=== PATIENT | female | born 1960 | race Caucasian/White ===

== ENCOUNTER 2016-05-02 07:59 | Emergency (ER) | payer OTHER ==
[~2016-05-02] VITALS: Ht 162.6 cm; Wt 107.0 kg
[~2016-05-02 07:59] MED LIST: ACET325T33 PO; ALBU8.5H3 INH; BEN50 PO; COLL1PAC12 TOP; CYCL-319 PO; HC1C30 TOP; HYDR-3498 PO; IBUP-1542 PO; ONDA4TAB8 PO; PRED20TA PO
[2016-05-02 08:03] VITALS: Ht 162.6 cm; Wt 107.0 kg
[2016-05-02] MEDS ORDERED: ASPIRIN 325 MG TAB PO STA (08:39)
[2016-05-02] MEDS ORDERED: KETOROLAC 30 MG INJ IV STA (08:39)
--- NOTE | 2016-05-02 09:10 | RADRPT ---
PROCEDURE: Chest x-ray CLINICAL INDICATION: Chest pain. TECHNIQUE: One-view frontal. COMPARISON: 10/14/2015 FINDINGS: The cardiac silhouette is normal. No infiltrates are noted. No hilar abnormalities are identified. No pneumothorax or pleural effusions are visualized. IMPRESSION: 1. No active cardiopulmonary changes. RPTAT: HH .Kraig Barone MD, MD Date Time Electronically viewed and signed by .Kraig Barone MD, on 05/02/2016 09:10 .G/
[2016-05-02 09:20] LABS: BASOPHIL # 0.1 10^3/ul (0.0-0.1); BASOPHILS % 0.8 % (0.0-2.0); EOSINOPHILS # 0.1 10^3/ul (0.0-0.5); EOSINOPHILS % 1.7 % (0.0-7.0); HEMATOCRIT 39.4 % (37.0-47.0); HEMOGLOBIN 13.1 g/dl (12.0-16.0); LYMPHOCYTES # 2.1 10^3/ul (0.8-2.9); LYMPHOCYTES % 32.2 % (15.0-51.0); MEAN CORPUSCULAR HEMOGLOBIN 29.9 pg (29.0-33.0); MEAN CORPUSCULAR HGB CONC 33.2 g/dl (32.0-37.0); MEAN CORPUSCULAR VOLUME 89.9 fl (82.0-101.0); MEAN PLATELET VOLUME 8.1 fl (7.4-10.4); MONOCYTE # 0.3 10^3/ul (0.3-0.9); MONOCYTES % 4.9 % (0.0-11.0); NEUTROPHILS % 60.4 % (39.0-77.0); PLATELET COUNT 265 10^3/UL (140-440); RED BLOOD COUNT 4.39 10^6/ul (4.20-5.40); RED CELL DISTRIBUTION WIDTH 13.9 % (11.5-14.5); UNCORRECTED WBC 6.6 10^3/ul (4.8-10.8); WHITE BLOOD COUNT 6.6 10^3/ul (4.8-10.8)
[2016-05-02 09:29] LABS: CONDITION 1; LH ANALYZER COMMENTS 1; SUSPECT 1
[2016-05-02 09:35] LABS: INR 0.96; PROTIME 12.8 Sec (12.2-14.2)
[2016-05-02 09:36] LABS: PARTIAL THROMBOPLASTIN TIME 36.1 Sec (25.0-35.0)
[2016-05-02 09:38] LABS: D-DIMER 265.84 ng/ml (<460)
[2016-05-02 09:49] LABS: ALBUMIN 4.1 g/dl (3.3-4.9)
[2016-05-02 09:50] LABS: CHLORIDE 103 mmol/L (97-110); POTASSIUM 4.1 mmol/L (3.5-5.1); SODIUM 139 mmol/L (135-144)
[2016-05-02 09:52] LABS: ANION GAP 15 (8-16); BILIRUBIN,INDIRECT 0.3 mg/dl (0-1.1); BILIRUBIN,TOTAL 0.3 mg/dl (0.2-1.3); CARBON DIOXIDE 25 mmol/L (21-31); CREATININE 0.78 mg/dl (0.44-1.00)
[2016-05-02 09:53] LABS: ALANINE AMINOTRANSFERASE 52 IU/L (13-69); ALKALINE PHOSPHATASE 88 IU/L (42-121); ASPARTATE AMINO TRANSFERASE 39 IU/L (15-46); BLOOD UREA NITROGEN 12 mg/dl (7-20); CALCIUM 9.2 mg/dl (8.4-10.2); GLUCOSE 115 mg/dl (70-220); TOTAL PROTEIN 7.5 g/dl (6.1-8.1)
[2016-05-02 10:07] LABS: TROPONIN-I < 0.012 ng/ml (0.00-0.12)
--- NOTE | 2016-05-02 10:25 | ERD ---
ER Documentation Chief Complaint Date/Time DATE: 05/02/16 TIME: 10:21 Chief Complaint CP RADIATING TO LT SHOULDER, JAW, NECK. SYMPTOM ONSET LAST NIGHT. HPI Patient comes to the emergency department complaining of pleuritic chest pain that has been constant since yesterday. She states it hurts worse when she is breathing. She has a history of costochondritis. She is also had some mild nasal congestion for which she is very seen her primary care physician. She is taking antibiotics for this. She denies any coughing or chest congestion. She denies any chest trauma. Denies any dyspnea or hemoptysis flank or back pain. Denies any lower extremity edema or calf pain. She denies any nausea, vomiting , or diarrhea. Denies any sore throat, or otalgia, loss of consciousness, or dizziness. In the remainder of the systems are negative. ROS All systems reviewed and are negative except as per history of present illness. Medications Home Meds Active Scripts Albuterol Sulfate* (Proair HFA*) 8.5 Gm Hfa.aer.ad, 2 PUFF INH Q4, #1 INHALER Prov:MIGUEL FOY PA-C 10/14/15 Acetaminophen* (Tylenol*) 325 Mg Tablet, 2 TAB PO Q8 Y for PAIN AND OR ELEVATED TEMP, #20 TAB Prov:MIGUEL FOY PA-C 09/27/15 Ondansetron Hcl* (Zofran*) 4 Mg Tablet, 4 MG PO Q6H for NAUSEA AND/OR VOMITING, #30 TAB Prov:MIGUEL FOY PA-C 09/27/15 Cyclobenzaprine Hcl* (Cyclobenzaprine Hcl*) 10 Mg Tablet, 10 MG PO TID, #15 TAB Prov:ISMAEL BREEN 03/21/15 Ibuprofen* (Motrin*) 600 Mg Tab, 600 MG PO Q6, #30 TAB Prov:ISMAEL BREEN 03/21/15 Hydrocodone Bit-Acetaminophen* ([place]*) 5-325 Mg Tab, 1 TAB PO Q6 Y for PAIN, # 20 TAB Prov:ISMAEL BREEN 03/21/15 Prednisone* (Prednisone*) 20 Mg Tab, 20 MG PO BID for 3 Days, TAB Prov:CHO,BLUE 10/17/14 Colloidal Oatmeal* (Oatmeal Bath*) 1 Pkt Packet, 1 PKT TOP QID for 5 Days, PACKET (USE FOR BATH) Prov:JOANA LUISA 10/17/14 Hydrocortisone* Topical (Hydrocortisone* Topical) 1%-28.35 Gm Cream..g., 1 APPLIC TOP Q6 Y for ITCHING, #1 TUB Prov:CHOJOANAA 10/17/14 Diphenhydramine Hcl* (Benadryl*) 50 Mg Cap, 50 MG PO Q6 Y for PRURITUS, #30 Prov:CHOBLUE 10/17/14 Allergies Allergies: Coded Allergies: sulfamethoxazole (Verified Allergy, Intermediate, 10/17/14) trimethoprim (Verified Allergy, Intermediate, 10/17/14) PMhx/Soc History of Surgery: No (HYSTERCTOMY ) Anesthesia Reaction: No Hx Neurological Disorder: No Hx Respiratory Disorders: No Hx Cardiac Disorders: No Hx Psychiatric Problems: Yes (BIPOLAR, DEPRESSION) Hx Miscellaneous Medical Probl: No Hx Alcohol Use: No Hx Substance Use: No Hx Tobacco Use: No Smoking Status: Former smoker FmHx Family History: No diabetes Physical Exam Vitals Vital Signs Date Time Temp Pulse Resp B/P Pulse Ox O2 Delivery O2 Flow Rate FiO2 05/02/16 10:07 98.1 77 16 158/93 95 Room Air 05/02/16 08:03 97.9 89 18 137/92 95 Physical Exam Const: Well-developed well-nourished female lying on the bed in no acute distress Head: Atraumatic Eyes: Normal Conjunctiva ENT: Normal External Ears, Nose and Mouth. Neck: Full range of motion..~ No meningismus. Resp: Clear to auscultation bilaterally Cardio: Regular rate and rhythm, no murmurs, mild tenderness to palpation in the anterior chest wall Abd: Soft, non tender, non distended. Normal bowel sounds Skin: No petechiae or rashes Back: No midline or flank tenderness Ext: No cyanosis, or edema. No calf pain negative Homans sign Neur: Awake and alert Psych: Normal Mood and Affect Result Diagram: 05/02/16 0907 05/02/16 0907 Results 24 hrs Laboratory Tests Test 05/02/16 09:07 Activated Partial Thromboplast Time 36.1Sec Alanine Aminotransferase (ALT/SGPT) 52IU/L Albumin 4.1g/dl Albumin/Globulin Ratio 1.20 Alkaline Phosphatase 88IU/L Anion Gap 15 Aspartate Amino Transf (AST/SGOT) 39IU/L Basophils # 0.110^3/ul Basophils % 0.8% Blood Urea Nitrogen 12mg/dl Calcium Level 9.2mg/dl Carbon Dioxide Level 25mmol/L Chloride Level 103mmol/L Creatinine 0.78mg/dl D-Dimer 265.84ng/ml D-Dimer Comment Differential Comment AUTO w/SCAN Direct Bilirubin 0.00mg/dl Eosinophils # 0.110^3/ul Eosinophils % 1.7% Globulin 3.40g/dl Glucose Level 115mg/dl Hematocrit 39.4% Hemoglobin 13.1g/dl INR International Normalized Ratio 0.96 Indirect Bilirubin 0.3mg/dl Lymphocytes # 2.110^3/ul Lymphocytes % 32.2% Mean Corpuscular Hemoglobin 29.9pg Mean Corpuscular Hemoglobin Concent 33.2g/dl Mean Corpuscular Volume 89.9fl Mean Platelet Volume 8.1fl Monocytes # 0.310^3/ul Monocytes % 4.9% Neutrophils # 4.010^3/ul Neutrophils % 60.4% Nucleated Red Blood Cells # 0.010^3/ul Nucleated Red Blood Cells % 0.0/100WBC Platelet Count 90631^3/UL Potassium Level 4.1mmol/L Prothrombin Time 12.8Sec Prothrombin Time Ratio 1.0 Red Blood Count 4.3910^6/ul Red Cell Distribution Width 13.9% Sodium Level 139mmol/L Total Bilirubin 0.3mg/dl Total Protein 7.5g/dl Troponin I < 0.012ng/ml White Blood Count 6.610^3/ul Current Medications Medications (Trade) Dose Ordered Sig/Kristel Route PRN Reason Start Time Stop Time Status Last Admin Dose Admin Aspirin (Aspirin) 325 mg ONCE STAT PO 05/02/16 08:39 05/02/16 08:42 DC 05/02/16 09:13 Ketorolac Tromethamine (Toradol) 30 mg ONCE STAT IV 05/02/16 08:39 05/02/16 08:42 DC 05/02/16 09:13 Procedures/MDM EKG demonstrates normal sinus rhythm at approximately 90 bpm with no evidence of acute ischemia noted. No PE pattern noted either. Normal VA interval and normal QRS interval. No old EKG available for comparison. Departure Diagnosis: Primary Impression: Chest pain Chest pain type: chest pain on breathing Qualified Code: R07.1 - Chest pain on breathing Condition: Stable Patient Instructions: Chest Pain, Uncertain Cause Additional Instructions: Take the medications as prescribed and please schedule a follow-up appointment with your primary care physician for any further testing that might be necessary. Activity as tolerated. Return to the emergency department for any new or worsening symptoms. CANDELARIO SMITH May 02, 2016 10:24
[2016-05-02] MEDS ORDERED: ULT50 PO (10:26)
[2016-05-02] MEDS ORDERED: ETOD300C26 PO (10:26)
[2016-05-02 10:49] VITALS: BP 142/84; PULSE 79; RESP 16; TEMP 98.1
== END 2016-05-02 10:51 | disposition home or self-care (01) ==
LOC: E/R 07:59
DX: R07.1 Chest pain on breathing (principal); Z87.891 Personal history of nicotine dependence
CPT/HCPCS: 71010; 80053; 84484; 85025; 85378; 85610; 85730; 93005; J1885; Z7610; 36415; 96374

== ENCOUNTER 2016-07-29 17:13 | Inpatient (IN) | payer OTHER ==
[~2016-07-29] VITALS: Ht 160 cm; Wt 100.0 kg
[~2016-07-29 17:13] MED LIST changes: +ETOD300C26 PO; +TRAM50TA2 PO
[2016-07-29 23:20] VITALS: Ht 160 cm; Wt 100.0 kg
[2016-07-29 23:30] VITALS: BP 132/64; RESP 20
[2016-07-30] MEDS: HYDROmorphONE 2 MG TAB PO PRN ×3 (02:18→20:50)
[2016-07-30 03:02] LABS: ADD UMIC NO; URINE BILIRUBIN (Dip) NEGATIVE (NEGATIVE); URINE BLOOD (Dip) NEGATIVE (NEGATIVE); URINE COLOR LT. YELLOW (YELLOW); URINE GLUCOSE (Dip) NEGATIVE (NEGATIVE); URINE KETONES (Dip) NEGATIVE (NEGATIVE); URINE LEUKOCYTE ESTERASE (Dip) NEGATIVE (NEGATIVE); URINE NITRITE (Dip) NEGATIVE (NEGATIVE); URINE TOTAL PROTEIN (Dip) NEGATIVE (NEGATIVE); URINE UROBILINOGEN (Dip) 0.2 E.U./dL (0.1-1.0)
[2016-07-30] MEDS ORDERED: LACTULOSE 30ML CUP PO PRN (05:00)
[2016-07-30] MEDS ORDERED: ONDANSETRON 4 MG INJ IV PRN (05:00)
[2016-07-30] MEDS ORDERED: BISACODYL 10 MG SUPP PR PRN (05:00)
[2016-07-30] MEDS ORDERED: DOCUSATE SODIUM 250 MG CAP PO PRN (05:00)
[2016-07-30] MEDS ORDERED: POLYETHYLENE GLYCOL 17 GM PACKET PO PRN (05:00)
[2016-07-30] MEDS ORDERED: SENNA TAB PO PRN (05:00)
[2016-07-30 06:25] LABS: ADD SCAN DIFF NO
[2016-07-30 06:39] LABS: ABNORMAL IP MESSAGE 1; BASOPHIL # 0.1 10^3/ul (0.0-0.1); BASOPHILS % 0.5 % (0.0-2.0); EOSINOPHILS # 0.2 10^3/ul (0.0-0.5); EOSINOPHILS % 1.9 % (0.0-7.0); HEMATOCRIT 30.6 % (37.0-47.0); HEMOGLOBIN 9.9 g/dl (12.0-16.0); LYMPHOCYTES # 2.7 10^3/ul (0.8-2.9); LYMPHOCYTES % 24.9 % (15.0-51.0); MEAN CORPUSCULAR HEMOGLOBIN 30.5 pg (29.0-33.0); MEAN CORPUSCULAR HGB CONC 32.4 g/dl (32.0-37.0); MEAN CORPUSCULAR VOLUME 94.2 fl (82.0-101.0); MEAN PLATELET VOLUME 9.6 fl (7.4-10.4); MONOCYTE # 0.7 10^3/ul (0.3-0.9); MONOCYTES % 6.3 % (0.0-11.0); NEUTROPHIL # 6.5 10^3/ul (1.6-7.5); NEUTROPHILS % 60.4 % (39.0-77.0); NUCLEATED RED BLOOD CELLS # 0.1 10^3/ul (0.0-0.0); NUCLEATED RED BLOOD CELLS% 0.7 /100WBC (0.0-0.0); PLATELET COUNT 294 10^3/UL (140-415); RED BLOOD COUNT 3.25 10^6/ul (4.20-5.40); RED CELL DISTRIBUTION WIDTH 14.9 % (11.5-14.5); WHITE BLOOD COUNT 10.7 10^3/ul (4.8-10.8)
[2016-07-30 06:42] LABS: ALBUMIN 3.8 g/dl (3.3-4.9); POTASSIUM 4.4 mmol/L (3.5-5.1)
[2016-07-30 06:44] LABS: BILIRUBIN,INDIRECT 0.5 mg/dl (0-1.1); BILIRUBIN,TOTAL 0.5 mg/dl (0.2-1.3); CREATININE 1.03 mg/dl (0.44-1.00)
[2016-07-30 06:45] LABS: ALBUMIN/GLOBULIN RATIO 1.05; CALCIUM 9.4 mg/dl (8.4-10.2); TOTAL PROTEIN 7.4 g/dl (6.1-8.1)
[2016-07-30 07:30] VITALS: BP 132/76; RESP 20
[2016-07-30] MEDS: FAMOTIDINE 20 MG TAB PO SCH ×2 (09:00→20:46)
[2016-07-30] MEDS: DOCUSATE SODIUM 100 MG CAP PO SCH ×2 (09:00→20:46)
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
[2016-07-30] MEDS: ACETAMINOPHEN 325 MG TAB PO PRN (15:43)
[2016-07-30] MEDS: EPOETIN 10000 UNITS/ML (NON ESRD/NON ONCOLOGY) SC SCH (18:24)
[2016-07-30 20:31] VITALS: BP 133/67; RESP 18
[2016-07-30] MEDS: SENNA TAB PO SCH (20:46)
[2016-07-31] MEDS ORDERED: HYDROCODONE/APAP (5/325) TAB PO PRN (09:00)
[2016-07-31] MEDS: DOCUSATE SODIUM 100 MG CAP PO SCH ×2 (09:00→21:00)
[2016-07-31] MEDS: FAMOTIDINE 20 MG TAB PO SCH ×2 (09:38→20:34)
[2016-07-31] MEDS: CEPHALEXIN 500 MG CAP PO SCH ×2 (09:38→20:34)
[2016-07-31 12:17] VITALS: BP 153/75; RESP 14
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
[2016-07-31] MEDS: ZIPRASIDONE 20 MG CAP PO SCH (20:34)
[2016-07-31] MEDS: traZODone 50 MG TAB PO SCH (20:34)
[2016-07-31] MEDS: OXCARBAZEPINE 300 MG TAB PO SCH (20:34)
[2016-07-31 20:45] VITALS: BP 141/73; RESP 18
[2016-07-31] MEDS: SENNA TAB PO SCH (21:00)
[2016-07-31] MEDS: AL HYDROX/MG HYDROX/SIMETH 30 ML CUP PO PRN (21:57)
[2016-08-01 07:30] VITALS: BP 137/79; RESP 18
[2016-08-01] MEDS: DOCUSATE SODIUM 100 MG CAP PO SCH ×2 (09:00→20:19)
[2016-08-01] MEDS: OXCARBAZEPINE 300 MG TAB PO SCH ×2 (09:00→20:20)
[2016-08-01] MEDS ORDERED: LAMOTRIGINE 100 MG TAB PO SCH (09:00)
[2016-08-01] MEDS: CEPHALEXIN 500 MG CAP PO SCH ×2 (09:02→20:19)
[2016-08-01] MEDS: FAMOTIDINE 20 MG TAB PO SCH ×2 (09:02→20:20)
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
[2016-08-01] MEDS: AL HYDROX/MG HYDROX/SIMETH 30 ML CUP PO PRN (17:06)
[2016-08-01 20:18] VITALS: BP 135/86; RESP 21
[2016-08-01] MEDS: ZIPRASIDONE 20 MG CAP PO SCH (20:19)
[2016-08-01] MEDS: LAMOTRIGINE 100 MG TAB PO SCH (20:19)
[2016-08-01] MEDS: SENNA TAB PO SCH (20:19)
[2016-08-01] MEDS: traZODone 50 MG TAB PO SCH (20:20)
[2016-08-01] MEDS: HYDROCODONE/APAP (5/325) TAB PO PRN (20:36)
[2016-08-02 07:30] VITALS: BP 136/80; RESP 18
[2016-08-02] MEDS: CEPHALEXIN 500 MG CAP PO SCH ×2 (08:30→21:17)
[2016-08-02] MEDS: FAMOTIDINE 20 MG TAB PO SCH ×2 (08:30→21:18)
[2016-08-02] MEDS: DOCUSATE SODIUM 100 MG CAP PO SCH ×2 (08:30→21:17)
[2016-08-02] MEDS: HYDROCODONE/APAP (5/325) TAB PO PRN ×2 (09:23→17:52)
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
--- NOTE | 2016-08-02 12:39 | CONS ---
Date/Time of Note Date/Time of Note DATE: 08/02/16 TIME: 12:37 Consult Date/Type/Reason Admit Date/Time Jul 29, 2016 at 23:03 Initial Consult Date Type of Consultation: IM/Pulm Subjective Doing well Objective Vital Signs Date Time Temp Pulse Resp B/P Pulse Ox O2 Delivery O2 Flow Rate FiO2 08/02/16 07:30 98.3 78 18 136/80 98 Intake and Output 08/01/16 08/01/16 08/02/16 15:00 23:00 07:00 Intake Total 2020 ml 550 ml Output Total 1 ml Balance 2019 ml 550 ml INTERDISCIPLINARY TEAM CONFERENCE BOWEL- Cont BLADDER-Cont SKIN- improving echymosis OT- DRESSING-mod BATHING-mod TOILETING-mod PT- BED MOBILITY-mod/min TRANSFERS-mod/min AMBULATION-mod/min 75 feet SPEECH- COGNITION-sba A/P- Interdisciplinary team conference held today. Please see interdisciplinary sheet. Working toward d.c. on 08/11 with post discharge follow up of physical therapy, occupational therapy. Results/Medications Result Diagram: 08/02/16 1156 07/30/16 0615 Results 24 hrs Laboratory Tests Test 08/02/16 11:56 Hemoglobin 11.2 L Medications Current Medications Hydromorphone HCl (Dilaudid) 1 mg Q4H PRN PO PAIN Last administered on 20:50; Admin Dose 1 MG; Start 07/30/16 at 00:30 Docusate Sodium (Colace) 100 mg BID PO Last administered on 08/02/16 08:30; Admin Dose 100 MG; Start 07/30/16 at 09:00 Senna (Senokot) 1 tab HS PO Last administered on 08/01/16 20:19; Admin Dose 1 TAB; Start 07/30/16 at 21:00 Acetaminophen (Tylenol Tab) 650 mg Q4H PRN PO PAIN AND OR ELEVATED TEMP Last administered on 07/30/16 15:43; Admin Dose 650 MG; Start 07/30/16 at 05:00 Bisacodyl (Dulcolax Supp) 10 mg DAILY PRN [place] CONSTIPATION; Start 07/30/16 at 05 :00 Docusate Sodium (Colace) 250 mg BID PRN PO CONSTIPATION; Start 07/30/16 at 05: 00 Epoetin Fadi (Epogen (Non Esrd/Non Oncology)) 10,000 units MoWeFr@17 SC Last administered on 07/30/16 18:24; Admin Dose 10,000 UNITS; Start 07/30/16 at 17: 00 Famotidine (Pepcid) 20 mg BID PO Last administered on 08/02/16 08:30; Admin Dose 20 MG; Start 07/30/16 at 09:00 Lactulose (Enulose) 20 gm DAILY PRN PO CONSTIPATION; Start 07/30/16 at 05:00 Ondansetron HCl (Zofran Inj) 4 mg Q6H PRN IV NAUSEA AND/OR VOMITING; Start at 05:00 Polyethylene Glycol (Miralax) 17 gm DAILY PRN PO CONSTIPATION; Start 07/30/16 at 05:00 Senna (Senokot) 1 tab BID PRN PO CONSTIPATION; Start 07/30/16 at 05:00 Cephalexin (Keflex) 500 mg BID PO Last administered on 08/02/16 08:30; Admin Dose 500 MG; Start 07/31/16 at 10:00; Stop 08/05/16 at 09:59 Acetaminophen/ Hydrocodone Bitart ([employer] (5/325)) 1 tab Q4H PRN PO MODERATE PAIN LEVEL 4-6 Last administered on 08/02/16 09:23; Admin Dose 1 TAB; Start 07/31 at 09:00 Acetaminophen/ Hydrocodone Bitart ([employer] (5/325)) 2 tab Q4H PRN PO SEVERE PAIN LEVEL 7-10; Start 07/31/16 at 09:00 Trazodone HCl (Desyrel) 50 mg HS PO Last administered on 08/01/16 20:20; Admin Dose 50 MG; Start 07/31/16 at 21:00 Ziprasidone (Geodon) 60 mg HS PO Last administered on 08/01/16 20:19; Admin Dose 60 MG; Start 07/31/16 at 21:00 Al Hydrox/Mg Hydrox/Simethicone (Mag-Al Plus) 30 ml Q6H PRN PO GASTROINTESTINAL UPSET Last administered on 08/01/16 17:06; Admin Dose 30 ML; Start 07/31/16 at 22:00 Lamotrigine (Lamictal) 100 mg HS PO Last administered on 08/01/16 20:19; Admin Dose 100 MG; Start 08/01/16 at 21:00 Oxcarbazepine (Trileptal) 300 mg HS PO Last administered on 08/01/16 20:20; Admin Dose 300 MG; Start 08/01/16 at 21:[address] GRANGER MD Aug 02, 2016 12:39
[2016-08-02] MEDS: EPOETIN 10000 UNITS/ML (NON ESRD/NON ONCOLOGY) SC SCH (17:00)
[2016-08-02 20:09] VITALS: BP 142/83; RESP 18
[2016-08-02] MEDS: ZIPRASIDONE 20 MG CAP PO SCH (21:00)
[2016-08-02] MEDS: OXCARBAZEPINE 300 MG TAB PO SCH (21:17)
[2016-08-02] MEDS: SENNA TAB PO SCH (21:17)
[2016-08-02] MEDS: LAMOTRIGINE 100 MG TAB PO SCH (21:17)
[2016-08-02] MEDS: traZODone 50 MG TAB PO SCH (21:18)
[2016-08-02] MEDS: ALPRAZOLAM 0.25 MG TAB PO PRN (21:41)
[2016-08-03] MEDS: ACETAMINOPHEN 325 MG TAB PO PRN (03:45)
[2016-08-03 08:00] VITALS: BP 142/70; RESP 18
[2016-08-03] MEDS: FAMOTIDINE 20 MG TAB PO SCH ×2 (08:37→21:00)
[2016-08-03] MEDS: CEPHALEXIN 500 MG CAP PO SCH ×2 (08:37→20:59)
[2016-08-03] MEDS: DOCUSATE SODIUM 100 MG CAP PO SCH ×2 (08:37→21:00)
[2016-08-03] MEDS: HYDROmorphONE 2 MG TAB PO PRN (11:18)
[2016-08-03] MEDS ORDERED: GABAPENTIN 100 MG CAP PO SCH (12:00)
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
--- NOTE | 2016-08-03 13:21 | RADRPT ---
PROCEDURE: CT Cervical Spine without contrast. CLINICAL INDICATION: Cervical spine pain. TECHNIQUE: The study was performed on a multislice multidetector CT scanner. Spiral axial 1 mm im ages were obtained through the cervical spine and reformatted at 2.5 mm slice thickness without cont rast. 1 or more of the following dose reduction techniques were utilized: Automated exposure contr ol, adjustment of the mA and/or kV according to patient's size, iterative reconstruction technique. Coronal and sagittal reformations were obtained. The images were reviewed on a PACS workstation. RADIATION DOSE: CTDIvol: 22.3 mGyDLP: 517.4 mGy-cm COMPARISON: No prior studies are available for comparison. FINDINGS: There is diffuse straightening cervical spine without reversal of normal cervical lordosis. There i s trace anterolisthesis of C3 on C4 and trace retrolisthesis of C6 on C7. The craniocervical juncti on is intact. The vertebral body heights are maintained. There is no evidence of fracture or dislo cation. The marrow density is within normal limits. There are diffuse anterior osteophytes with mil d narrowing intervertebral disc spaces at C4-5 and C5-6 and moderate disc-space narrowing at C6-7. There are mild discogenic endplate changes at C6-7. There is normal ossification of the nuchal liga ment, normal variant. The cervical canal is unremarkable. There is a no bone destruction or sclerosi s. The paraspinal soft tissues are unremarkable. No significant paraspinal soft tissue swelling. C2-3: There is a 1-2 mm posterior disc/osteophyte complex. The thecal sac is patent. There is mild to moderate facet spondylosis. The neural foramina are patent. C3-4: There is a 1-2 mm posterior disc/osteophyte complex. The thecal sac is patent, measuring 9 mm midline AP diameter. There is mild to moderate left and mild right facet hypertrophy and mild left uncovertebral joint spondylosis. There is moderate left and mild right neural foraminal narrowing. C4-5: There is a 1-2 mm posterior disc/osteophyte complex. The thecal sac and neural foramina are p atent. There is mild to moderate bilateral facet spondylosis. C5-6: There is a 2 mm posterior disc/osteophyte complex asymmetric to the right paracentral region. The thecal sac measuring 9 mm midline AP diameter. There is moderate and mild left facet hypertrop hy and mild bilateral uncovertebral joint spondylosis. There is moderate bilateral neural foraminal narrowing. C6-7: There is a broad-based 4-5 mm posterior disc/osteophyte complex, slightly asymmetric to the l eft paracentral region. The thecal sac measures 5 mm midline AP diameter. There is mild to moderat e bilateral facet and uncovertebral joint spondylosis. There is severe bilateral neural foraminal n arrowing. C7-T1: There is a 1-2 mm posterior disc/osteophyte complex. The thecal sac is patent. There is mil d bilateral neural foraminal narrowing. IMPRESSION: 1. No acute abnormality of the cervical spine. No evidence of fracture or dislocation. 2. Moderate spondylosis at C6-7 with broad-based 4-5 mm posterior disc/osteophyte complex with subs equent severe spinal stenosis and severe bilateral neural foraminal narrowing. 3. Mild to moderate spondylosis at C4-5 and C5-6 without significant narrowing of the cervical thec al sac. 4. Multilevel facet and uncovertebral joint spondylosis with severe narrowing of the bilateral feet 67 foramina. Other mild to moderate foraminal narrowings as discussed above. RPTAT: HGAS .Trino Uribe MD, Date Time Electronically viewed and signed by .Trino Uribe MD, MD on 08/03/2016 13:21 .S/
[2016-08-03] MEDS: HYDROCODONE/APAP (7.5/325) TAB PO PRN ×2 (13:29→18:18)
--- NOTE | 2016-08-03 14:36 | RADRPT ---
PROCEDURE: XR Chest. CLINICAL INDICATION: Chest pain. TECHNIQUE: Single frontal view. COMPARISON: 05/02/2016. FINDINGS: There is a new stent in the transverse aorta and upper descending aorta. The lungs are clear. The heart size is normal. There is no pleural effusion. There is no pneumothorax. IMPRESSION: 1. New stent in the transverse aorta and upper descending aorta. 2. Otherwise normal chest x-ray. RPTAT: QQ .Blayne Hobbs MD, MD Date Time Electronically viewed and signed by .Blayne Hobbs MD, MD on 08/03/2016 14:36 .R/
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
[2016-08-03 15:32] LABS: ADD SCAN DIFF NO
[2016-08-03 15:36] LABS: BASOPHILS % 0.5 % (0.0-2.0); EOSINOPHILS # 0.2 10^3/ul (0.0-0.5); EOSINOPHILS % 2.5 % (0.0-7.0); HEMOGLOBIN 10.8 g/dl (12.0-16.0); LYMPHOCYTES # 2.3 10^3/ul (0.8-2.9); LYMPHOCYTES % 26.7 % (15.0-51.0); MEAN CORPUSCULAR HEMOGLOBIN 30.3 pg (29.0-33.0); MEAN CORPUSCULAR HGB CONC 32.7 g/dl (32.0-37.0); MEAN CORPUSCULAR VOLUME 92.4 fl (82.0-101.0); MEAN PLATELET VOLUME 10.5 fl (7.4-10.4); MONOCYTE # 0.4 10^3/ul (0.3-0.9); MONOCYTES % 4.5 % (0.0-11.0); NEUTROPHIL # 5.5 10^3/ul (1.6-7.5); NEUTROPHILS % 64.6 % (39.0-77.0); NUCLEATED RED BLOOD CELLS% 0.2 /100WBC (0.0-0.0); PLATELET COUNT 324 10^3/UL (140-415); RED BLOOD COUNT 3.57 10^6/ul (4.20-5.40); RED CELL DISTRIBUTION WIDTH 14.9 % (11.5-14.5); WHITE BLOOD COUNT 8.5 10^3/ul (4.8-10.8)
[2016-08-03 15:48] LABS: POTASSIUM 3.3 mmol/L (3.5-5.1)
[2016-08-03 15:50] LABS: CREATININE 0.86 mg/dl (0.44-1.00)
[2016-08-03 15:51] LABS: CALCIUM 9.2 mg/dl (8.4-10.2)
[2016-08-03] MEDS ORDERED: POTASSIUM CHLORIDE (SR) 20 MEQ TAB PO STA (15:58)
[2016-08-03 20:00] VITALS: BP 132/75; RESP 18
[2016-08-03] MEDS: OXCARBAZEPINE 300 MG TAB PO SCH (20:59)
[2016-08-03] MEDS: ZIPRASIDONE 20 MG CAP PO SCH (20:59)
[2016-08-03] MEDS: GABAPENTIN 100 MG CAP PO SCH (21:00)
[2016-08-03] MEDS: traZODone 50 MG TAB PO SCH (21:00)
[2016-08-03] MEDS: LAMOTRIGINE 100 MG TAB PO SCH (21:00)
[2016-08-03] MEDS: SENNA TAB PO SCH (21:00)
[2016-08-04] MEDS: HYDROCODONE/APAP (7.5/325) TAB PO PRN ×4 (04:06→18:19)
[2016-08-04 07:41] VITALS: BP 138/68; RESP 18
[2016-08-04] MEDS: DOCUSATE SODIUM 100 MG CAP PO SCH ×2 (08:35→20:18)
[2016-08-04] MEDS: GABAPENTIN 100 MG CAP PO SCH ×3 (08:35→20:18)
[2016-08-04] MEDS: CEPHALEXIN 500 MG CAP PO SCH ×2 (08:35→20:18)
[2016-08-04] MEDS: FAMOTIDINE 20 MG TAB PO SCH ×2 (08:36→20:19)
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
[2016-08-04] MEDS: EPOETIN 10000 UNITS/ML (NON ESRD/NON ONCOLOGY) SC SCH (17:07)
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
[2016-08-04] MEDS: traZODone 50 MG TAB PO SCH (20:18)
[2016-08-04] MEDS: SENNA TAB PO SCH (20:18)
[2016-08-04] MEDS: ZIPRASIDONE 20 MG CAP PO SCH (20:18)
[2016-08-04] MEDS: LAMOTRIGINE 100 MG TAB PO SCH (20:18)
[2016-08-04] MEDS: OXCARBAZEPINE 300 MG TAB PO SCH (20:19)
[2016-08-04 20:36] VITALS: BP 129/78; RESP 18
[2016-08-05 07:30] VITALS: BP 122/74; RESP 18
[2016-08-05] MEDS: FAMOTIDINE 20 MG TAB PO SCH ×2 (09:20→20:02)
[2016-08-05] MEDS: DOCUSATE SODIUM 100 MG CAP PO SCH ×2 (09:20→20:02)
[2016-08-05] MEDS: CEPHALEXIN 500 MG CAP PO SCH (09:20)
[2016-08-05] MEDS: GABAPENTIN 100 MG CAP PO SCH ×3 (09:21→20:02)
[2016-08-05] MEDS: HYDROmorphONE 2 MG TAB PO PRN (12:38)
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
[2016-08-05 20:00] VITALS: BP 133/64; RESP 18
[2016-08-05] MEDS: OXCARBAZEPINE 300 MG TAB PO SCH (20:02)
[2016-08-05] MEDS: SENNA TAB PO SCH (20:02)
[2016-08-05] MEDS: traZODone 50 MG TAB PO SCH (20:02)
[2016-08-05] MEDS: LAMOTRIGINE 100 MG TAB PO SCH (20:02)
[2016-08-05] MEDS: ZIPRASIDONE 20 MG CAP PO SCH (20:02)
[2016-08-05] MEDS: HYDROCODONE/APAP (7.5/325) TAB PO PRN (20:03)
[2016-08-06] MEDS: HYDROCODONE/APAP (7.5/325) TAB PO PRN (01:20)
[2016-08-06 07:37] LABS: CALCIUM 8.8 mg/dl (8.4-10.2); CREATININE 0.81 mg/dl (0.44-1.00); POTASSIUM 4.1 mmol/L (3.5-5.1)
[2016-08-06 07:39] VITALS: BP 142/72; RESP 18
[2016-08-06] MEDS ORDERED: PATIENT'S OWN MEDICATION PO SCH (09:00)
[2016-08-06] MEDS: DOCUSATE SODIUM 100 MG CAP PO SCH ×2 (10:53→20:32)
[2016-08-06] MEDS: GABAPENTIN 100 MG CAP PO SCH ×3 (10:53→20:33)
[2016-08-06] MEDS: HYDROmorphONE 2 MG TAB PO PRN ×3 (10:54→20:41)
[2016-08-06] MEDS: FAMOTIDINE 20 MG TAB PO SCH ×2 (10:57→20:33)
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
[2016-08-06] MEDS: EPOETIN 10000 UNITS/ML (NON ESRD/NON ONCOLOGY) SC SCH (18:04)
[2016-08-06 20:00] VITALS: BP 152/87; RESP 18
[2016-08-06] MEDS: DESVENLAFAXINE 100 MG PO SCH (20:32)
[2016-08-06] MEDS: ZIPRASIDONE 20 MG CAP PO SCH (20:32)
[2016-08-06] MEDS: LAMOTRIGINE 100 MG TAB PO SCH (20:32)
[2016-08-06] MEDS: SENNA TAB PO SCH (20:33)
[2016-08-06] MEDS: OXCARBAZEPINE 300 MG TAB PO SCH (20:33)
[2016-08-07] MEDS: HYDROmorphONE 2 MG TAB PO PRN ×2 (00:52→08:53)
[2016-08-07 08:00] VITALS: BP 142/69; PULSE 90; RESP 16
[2016-08-07] MEDS: FAMOTIDINE 20 MG TAB PO SCH ×2 (08:52→20:48)
[2016-08-07] MEDS: DOCUSATE SODIUM 100 MG CAP PO SCH ×2 (08:52→20:48)
[2016-08-07] MEDS: GABAPENTIN 100 MG CAP PO SCH ×3 (08:52→20:48)
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
[2016-08-07] MEDS: LIDOCAINE 5% PATCH TD SCH (11:05)
[2016-08-07] MEDS: HYDROCODONE/APAP (7.5/325) TAB PO PRN (16:17)
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
[2016-08-07 20:00] VITALS: BP 154/84; PULSE 79; RESP 18
[2016-08-07] MEDS: DESVENLAFAXINE 100 MG PO SCH (20:47)
[2016-08-07] MEDS: SENNA TAB PO SCH (20:48)
[2016-08-07] MEDS: OXCARBAZEPINE 300 MG TAB PO SCH (20:48)
[2016-08-07] MEDS: ZIPRASIDONE 20 MG CAP PO SCH (20:48)
[2016-08-07] MEDS: LAMOTRIGINE 100 MG TAB PO SCH (20:49)
[2016-08-08 07:30] VITALS: BP 137/75; RESP 18
[2016-08-08] MEDS: DOCUSATE SODIUM 100 MG CAP PO SCH ×2 (09:00→20:15)
[2016-08-08] MEDS: ALPRAZOLAM 0.25 MG TAB PO PRN ×2 (09:25→17:16)
[2016-08-08] MEDS: HYDROmorphONE 2 MG TAB PO PRN ×2 (09:25→13:37)
[2016-08-08] MEDS: GABAPENTIN 100 MG CAP PO SCH ×3 (09:26→20:15)
[2016-08-08] MEDS: LIDOCAINE 5% PATCH TD SCH (09:26)
[2016-08-08] MEDS: FAMOTIDINE 20 MG TAB PO SCH ×2 (09:26→20:16)
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
[2016-08-08] MEDS: OXCARBAZEPINE 300 MG TAB PO SCH (20:15)
[2016-08-08] MEDS: DESVENLAFAXINE 100 MG PO SCH (20:15)
[2016-08-08] MEDS: ZIPRASIDONE 20 MG CAP PO SCH (20:15)
[2016-08-08] MEDS: LAMOTRIGINE 100 MG TAB PO SCH (20:15)
[2016-08-08] MEDS: SENNA TAB PO SCH (20:16)
[2016-08-08 20:54] VITALS: BP 133/78; RESP 18
[2016-08-09] MEDS: HYDROCODONE/APAP (7.5/325) TAB PO PRN ×3 (04:54→19:01)
[2016-08-09 07:30] VITALS: BP 129/68; RESP 18
[2016-08-09] MEDS: DOCUSATE SODIUM 100 MG CAP PO SCH ×2 (08:28→20:35)
[2016-08-09] MEDS: FAMOTIDINE 20 MG TAB PO SCH ×2 (08:28→20:35)
[2016-08-09] MEDS: GABAPENTIN 100 MG CAP PO SCH ×3 (08:28→20:36)
[2016-08-09] MEDS: LIDOCAINE 5% PATCH TD SCH (08:28)
--- NOTE | 2016-08-09 12:04 | CONS ---
Date/Time of Note Date/Time of Note DATE: 08/09/16 TIME: 12:03 Consult Date/Type/Reason Admit Date/Time Jul 29, 2016 at 23:03 Type of Consultation: IM/Pulm Objective Vital Signs Date Time Temp Pulse Resp B/P Pulse Ox O2 Delivery O2 Flow Rate FiO2 08/09/16 07:30 98.5 89 18 129/68 96 Intake and Output 08/08/16 08/08/16 08/09/16 15:00 23:00 07:00 Intake Total 1700 ml 550 ml Balance 1700 ml 550 ml INTERDISCIPLINARY TEAM CONFERENCE BOWEL- Cont BLADDER-Cont SKIN- intact OT- DRESSING-sba/min BATHING-sba/min TOILETING-cga PT- BED MOBILITY-sba TRANSFERS-sba AMBULATION-sba 300 feet SPEECH- COGNITION-MN A/P- Interdisciplinary team conference held today. Please see interdisciplinary sheet. Working toward d.c. on 08/11 with post discharge follow up of physical therapy, occupational therapy. Results/Medications Result Diagram: 08/06/16 0625 Medications Current Medications Hydromorphone HCl (Dilaudid) 1 mg Q4H PRN PO PAIN Last administered on 13:37; Admin Dose 1 MG; Start 07/30/16 at 00:30 Docusate Sodium (Colace) 100 mg BID PO Last administered on 08/09/16 08:28; Admin Dose 100 MG; Start 07/30/16 at 09:00 Senna (Senokot) 1 tab HS PO Last administered on 08/08/16 20:16; Admin Dose 1 TAB; Start 07/30/16 at 21:00 Acetaminophen (Tylenol Tab) 650 mg Q4H PRN PO PAIN AND OR ELEVATED TEMP Last administered on 08/03/16 03:45; Admin Dose 650 MG; Start 07/30/16 at 05:00 Bisacodyl (Dulcolax Supp) 10 mg DAILY PRN [place] CONSTIPATION; Start 07/30/16 at 05 :00 Docusate Sodium (Colace) 250 mg BID PRN PO CONSTIPATION; Start 07/30/16 at 05: 00 Epoetin Fadi (Epogen (Non Esrd/Non Oncology)) 10,000 units MoWeFr@17 SC Last administered on 08/06/16 18:04; Admin Dose 10,000 UNITS; Start 07/30/16 at 17:00 Famotidine (Pepcid) 20 mg BID PO Last administered on 08/09/16 08:28; Admin Dose 20 MG; Start 07/30/16 at 09:00 Lactulose (Enulose) 20 gm DAILY PRN PO CONSTIPATION; Start 07/30/16 at 05:00 Ondansetron HCl (Zofran Inj) 4 mg Q6H PRN IV NAUSEA AND/OR VOMITING; Start at 05:00 Polyethylene Glycol (Miralax) 17 gm DAILY PRN PO CONSTIPATION; Start 07/30/16 at 05:00 Senna (Senokot) 1 tab BID PRN PO CONSTIPATION; Start 07/30/16 at 05:00 Ziprasidone (Geodon) 60 mg HS PO Last administered on 08/08/16 20:15; Admin Dose 60 MG; Start 07/31/16 at 21:00 Al Hydrox/Mg Hydrox/Simethicone (Mag-Al Plus) 30 ml Q6H PRN PO GASTROINTESTINAL UPSET Last administered on 08/01/16 17:06; Admin Dose 30 ML; Start 07/31/16 at 22:00 Lamotrigine (Lamictal) 100 mg HS PO Last administered on 08/08/16 20:15; Admin Dose 100 MG; Start 08/01/16 at 21:00 Oxcarbazepine (Trileptal) 300 mg HS PO Last administered on 08/08/16 20:15; Admin Dose 300 MG; Start 08/01/16 at 21:00 Alprazolam (Xanax) 0.25 mg Q8H PRN PO ANXIETY Last administered on 08/08/16 17: 16; Admin Dose 0.25 MG; Start 08/02/16 at 21:30 Acetaminophen/ Hydrocodone Bitart ([place] (7.5-325)) 1 tab Q4H PRN PO moderate pain Last administered on 08/09/16 10:26; Admin Dose 1 TAB; Start 08/03/16 at 12 :00 Acetaminophen/ Hydrocodone Bitart ([place] (7.5-325)) 2 tab Q4H PRN PO severe pain Last administered on 08/04/16 04:06; Admin Dose 2 TAB; Start 08/03/16 at 12: 00 Gabapentin (Neurontin) 200 mg TID PO Last administered on 08/09/16 08:28; Admin Dose 200 MG; Start 08/04/16 at 13:00 Patient Own Medication 1 ea QHS PO Last administered on 08/08/16 20:15; Admin Dose 1 EA; Start 08/06/16 at 21:00 Lidocaine (Lidoderm) 1 patch DAILY TD Last administered on 08/09/16 08:28; Admin Dose 1 PATCH; Start 08/07/16 at 11:[address] GRANGER MD Aug 09, 2016 12:04
[2016-08-09] MEDS: ALPRAZOLAM 0.25 MG TAB PO PRN (12:36)
[2016-08-09] MEDS: EPOETIN 10000 UNITS/ML (NON ESRD/NON ONCOLOGY) SC SCH (17:04)
[2016-08-09] MEDS: OXCARBAZEPINE 300 MG TAB PO SCH (20:35)
[2016-08-09] MEDS: LAMOTRIGINE 100 MG TAB PO SCH (20:35)
[2016-08-09] MEDS: ZIPRASIDONE 20 MG CAP PO SCH (20:35)
[2016-08-09] MEDS: DESVENLAFAXINE 100 MG PO SCH (20:35)
[2016-08-09] MEDS: SENNA TAB PO SCH (20:36)
[2016-08-09 20:42] VITALS: BP 119/68; RESP 18
[2016-08-10 07:40] VITALS: BP 124/68; RESP 18
[2016-08-10] MEDS: FAMOTIDINE 20 MG TAB PO SCH ×2 (08:07→20:27)
[2016-08-10] MEDS: DOCUSATE SODIUM 100 MG CAP PO SCH ×2 (08:07→20:26)
[2016-08-10] MEDS: LIDOCAINE 5% PATCH TD SCH (08:07)
[2016-08-10] MEDS: GABAPENTIN 100 MG CAP PO SCH (08:07)
[2016-08-10] MEDS: HYDROmorphONE 2 MG TAB PO PRN ×2 (08:12→20:30)
[2016-08-10] MEDS: GABAPENTIN 300 MG CAP PO SCH ×2 (12:46→20:27)
--- NOTE | 2016-08-10 12:47 | CONS ---
Date/Time of Note Date/Time of Note DATE: 08/10/16 TIME: 12:47 Consult Date/Type/Reason Admit Date/Time Jul 29, 2016 at 23:03 Type of Consultation: IM/Pulm Objective Vital Signs Date Time Temp Pulse Resp B/P Pulse Ox O2 Delivery O2 Flow Rate FiO2 08/10/16 07:40 98.5 80 18 124/68 98 Intake and Output 08/09/16 08/09/16 08/10/16 14:59 22:59 06:59 Intake Total 1380 ml 1130 ml Balance 1380 ml 1130 ml Results/Medications Result Diagram: 08/06/16 0625 Medications Current Medications Hydromorphone HCl (Dilaudid) 1 mg Q4H PRN PO PAIN Last administered on 08:12; Admin Dose 1 MG; Start 07/30/16 at 00:30 Docusate Sodium (Colace) 100 mg BID PO Last administered on 08/10/16 08:07; Admin Dose 100 MG; Start 07/30/16 at 09:00 Senna (Senokot) 1 tab HS PO Last administered on 08/09/16 20:36; Admin Dose 1 TAB; Start 07/30/16 at 21:00 Acetaminophen (Tylenol Tab) 650 mg Q4H PRN PO PAIN AND OR ELEVATED TEMP Last administered on 08/03/16 03:45; Admin Dose 650 MG; Start 07/30/16 at 05:00 Bisacodyl (Dulcolax Supp) 10 mg DAILY PRN [place] CONSTIPATION; Start 07/30/16 at 05 :00 Docusate Sodium (Colace) 250 mg BID PRN PO CONSTIPATION; Start 07/30/16 at 05: 00 Epoetin Fadi (Epogen (Non Esrd/Non Oncology)) 10,000 units MoWeFr@17 SC Last administered on 08/09/16 17:04; Admin Dose 10,000 UNITS; Start 07/30/16 at 17: 00 Famotidine (Pepcid) 20 mg BID PO Last administered on 08/10/16 08:07; Admin Dose 20 MG; Start 07/30/16 at 09:00 Lactulose (Enulose) 20 gm DAILY PRN PO CONSTIPATION; Start 07/30/16 at 05:00 Ondansetron HCl (Zofran Inj) 4 mg Q6H PRN IV NAUSEA AND/OR VOMITING; Start at 05:00 Polyethylene Glycol (Miralax) 17 gm DAILY PRN PO CONSTIPATION; Start 07/30/16 at 05:00 Senna (Senokot) 1 tab BID PRN PO CONSTIPATION; Start 07/30/16 at 05:00 Ziprasidone (Geodon) 60 mg HS PO Last administered on 08/09/16 20:35; Admin Dose 60 MG; Start 07/31/16 at 21:00 Al Hydrox/Mg Hydrox/Simethicone (Mag-Al Plus) 30 ml Q6H PRN PO GASTROINTESTINAL UPSET Last administered on 08/01/16 17:06; Admin Dose 30 ML; Start 07/31/16 at 22:00 Lamotrigine (Lamictal) 100 mg HS PO Last administered on 08/09/16 20:35; Admin Dose 100 MG; Start 08/01/16 at 21:00 Oxcarbazepine (Trileptal) 300 mg HS PO Last administered on 08/09/16 20:35; Admin Dose 300 MG; Start 08/01/16 at 21:00 Alprazolam (Xanax) 0.25 mg Q8H PRN PO ANXIETY Last administered on 08/09/16 12 :36; Admin Dose 0.25 MG; Start 08/02/16 at 21:30 Acetaminophen/ Hydrocodone Bitart ([place] (7.5-325)) 1 tab Q4H PRN PO moderate pain Last administered on 08/09/16 19:01; Admin Dose 1 TAB; Start 08/03/16 at 12 :00 Acetaminophen/ Hydrocodone Bitart ([place] (7.5-325)) 2 tab Q4H PRN PO severe pain Last administered on 08/04/16 04:06; Admin Dose 2 TAB; Start 08/03/16 at 12: 00 Patient Own Medication 1 ea QHS PO Last administered on 08/09/16 20:35; Admin Dose 1 EA; Start 08/06/16 at 21:00 Lidocaine (Lidoderm) 1 patch DAILY TD Last administered on 08/10/16 08:07; Admin Dose 1 PATCH; Start 08/07/16 at 11:00 Gabapentin (Neurontin) 300 mg TID PO ; Start 08/10/16 at 13:[address] GRANGER MD Aug 10, 2016 12:47
[2016-08-10] MEDS: HYDROCODONE/APAP (7.5/325) TAB PO PRN (13:01)
[2016-08-10] MEDS: ZIPRASIDONE 20 MG CAP PO SCH (20:26)
[2016-08-10] MEDS: DESVENLAFAXINE 100 MG PO SCH (20:26)
[2016-08-10] MEDS: LAMOTRIGINE 100 MG TAB PO SCH (20:27)
[2016-08-10] MEDS: SENNA TAB PO SCH (20:27)
[2016-08-10] MEDS: OXCARBAZEPINE 300 MG TAB PO SCH (20:30)
[2016-08-10 21:10] VITALS: BP 138/64; RESP 18
[2016-08-11 08:00] VITALS: BP 130/67; RESP 18
[2016-08-11] MEDS: GABAPENTIN 300 MG CAP PO SCH (08:43)
[2016-08-11] MEDS: FAMOTIDINE 20 MG TAB PO SCH (08:43)
[2016-08-11] MEDS: LIDOCAINE 5% PATCH TD SCH (08:43)
[2016-08-11] MEDS: HYDROCODONE/APAP (7.5/325) TAB PO PRN (08:47)
[2016-08-11] MEDS: DOCUSATE SODIUM 100 MG CAP PO SCH (09:00)
== END 2016-08-11 11:00 | disposition home health service (06) | DRG 950 ==
LOC: VRC 23:03
PROVIDERS: ADMIT Physical Medicine & Rehabilitation; ATTEND Internal Medicine Pulmonary Disease
DX: S06.2X0D Diffuse traumatic brain injury without loss of consciousness, subsequent encounter (principal); I10 Essential (primary) hypertension; S02.113D Unspecified occipital condyle fracture, subsequent encounter for fracture with routine healing; S06.2X9D Diffuse traumatic brain injury with loss of consciousness of unspecified duration, subsequent encounter; S32.492D Other specified fracture of left acetabulum, subsequent encounter for fracture with routine healing; S32.058D Other fracture of fifth lumbar vertebra, subsequent encounter for fracture with routine healing; S25.0 Injury of thoracic aorta; S13.4XXD Sprain of ligaments of cervical spine, subsequent encounter; S32.592D Other specified fracture of left pubis, subsequent encounter for fracture with routine healing; F31.9 Bipolar disorder, unspecified; D64.9 Anemia, unspecified; R52 Pain, unspecified; V09.9XXA Pedestrian injured in unspecified transport accident, initial encounter; F32.9 Major depressive disorder, single episode, unspecified
CPT/HCPCS: 71010; 72125; 80048; 80053; 81003; 85018; 85025; 87081; 87086; 92507; 92523; 92610; 97110; 97112; 97116; 97150; 97163; 97167; 97530; 97535; J0885; J1170

== ENCOUNTER 2016-08-13 03:33 | Emergency (ER) | payer OTHER ==
[~2016-08-13] VITALS: Ht 162.6 cm; Wt 100.0 kg
[2016-08-13 03:39] VITALS: Ht 162.6 cm; Wt 100.0 kg
[2016-08-13] MEDS ORDERED: ONDANSETRON 4 MG INJ IV STA (04:12)
[2016-08-13] MEDS ORDERED: morphine 4 MG/ML VIAL IV STA (04:12)
--- NOTE | 2016-08-13 04:47 | RADRPT ---
PROCEDURE: Chest. CLINICAL INDICATION: Chest pain. TECHNIQUE: Single frontal view of the chest was obtained. COMPARISON: 08/03/2016. FINDINGS: The cardiac silhouette is within normal limits. The aortic arch is contains a stent. There is no f ocal consolidation, vascular congestion or pleural effusion. There is no pneumothorax. IMPRESSION: No evidence for active cardiopulmonary disease. Aortic stent. .Tim Wanger MD, MD Date Time Electronically viewed and signed by .Tim Wagner MD, on 08/13/2016 04:46 .T/
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
[2016-08-13 05:00] LABS: ADD SCAN DIFF NO
[2016-08-13 05:12] LABS: BASOPHILS % 0.5 % (0.0-2.0); EOSINOPHILS # 0.2 10^3/ul (0.0-0.5); EOSINOPHILS % 2.6 % (0.0-7.0); HEMATOCRIT 36.4 % (37.0-47.0); HEMOGLOBIN 11.5 g/dl (12.0-16.0); LYMPHOCYTES # 1.8 10^3/ul (0.8-2.9); LYMPHOCYTES % 29.3 % (15.0-51.0); MEAN CORPUSCULAR HEMOGLOBIN 30.1 pg (29.0-33.0); MEAN CORPUSCULAR HGB CONC 31.6 g/dl (32.0-37.0); MEAN CORPUSCULAR VOLUME 95.3 fl (82.0-101.0); MEAN PLATELET VOLUME 10.2 fl (7.4-10.4); MONOCYTE # 0.4 10^3/ul (0.3-0.9); MONOCYTES % 6.7 % (0.0-11.0); NEUTROPHIL # 3.7 10^3/ul (1.6-7.5); NEUTROPHILS % 60.7 % (39.0-77.0); PLATELET COUNT 260 10^3/UL (140-415); RED BLOOD COUNT 3.82 10^6/ul (4.20-5.40); RED CELL DISTRIBUTION WIDTH 15.4 % (11.5-14.5); WHITE BLOOD COUNT 6.1 10^3/ul (4.8-10.8)
[2016-08-13 05:15] LABS: CHLORIDE 103 mmol/L (97-110)
[2016-08-13 05:16] LABS: POTASSIUM 4.3 mmol/L (3.5-5.1); PROTIME 13.2 Sec (12.2-14.2); SODIUM 139 mmol/L (135-144)
[2016-08-13 05:17] LABS: PARTIAL THROMBOPLASTIN TIME 34.6 Sec (25.0-35.0)
[2016-08-13 05:18] LABS: ANION GAP 13 (8-16); BILIRUBIN,INDIRECT 0.3 mg/dl (0-1.1); BILIRUBIN,TOTAL 0.3 mg/dl (0.2-1.3); CARBON DIOXIDE 27 mmol/L (21-31)
[2016-08-13 05:19] LABS: ALANINE AMINOTRANSFERASE 26 IU/L (13-69); ALBUMIN/GLOBULIN RATIO 1.08; ALKALINE PHOSPHATASE 132 IU/L (42-121); ASPARTATE AMINO TRANSFERASE 29 IU/L (15-46); BLOOD UREA NITROGEN 13 mg/dl (7-20); CALCIUM 9.6 mg/dl (8.4-10.2); GLUCOSE 106 mg/dl (70-220); TOTAL PROTEIN 7.7 g/dl (6.1-8.1)
[2016-08-13 05:31] LABS: TROPONIN-I < 0.012 ng/ml (0.00-0.12)
[2016-08-13 06:01] VITALS: BP 124/67; PULSE 66; RESP 16; TEMP 98.9
== END 2016-08-13 06:24 | disposition home or self-care (01) ==
LOC: FTE 03:33
DX: S29.001A Unspecified injury of muscle and tendon of front wall of thorax, initial encounter (principal); S89.91XA Unspecified injury of right lower leg, initial encounter; R07.89 Other chest pain; V09.00XA Pedestrian injured in nontraffic accident involving unspecified motor vehicles, initial encounter
CPT/HCPCS: 29505; 36415; 71010; 80053; 84484; 85025; 85610; 85730; 93005; 96374; 96375; J2270; J2405; Z7502

== ENCOUNTER 2016-09-03 14:35 | Emergency (ER) | payer OTHER ==
[~2016-09-03] VITALS: Ht 165.1 cm; Wt 100.5 kg
[2016-09-03 14:37] VITALS: Ht 165.1 cm; Wt 100.5 kg
--- NOTE | 2016-09-03 16:06 | RADRPT ---
PROCEDURE: CT Brain without contrast. CLINICAL INDICATION: Headache. TECHNIQUE: CT scan of the brain was performed on a multidetector high-resolution CT scan. Axial im aging was obtained of the brain without contrast administration. Coronal and sagittal reformatted i mages were obtained from the axial source images. Standard CT scan of the head without contrast prot ocols were performed. The total exam CTDI equals 43.73 mGy and the total exam DLP equals 869.74 mGy-cm. One or more of the following dose reduction techniques were used: - Automated exposure control. - Adjustment of the mA and/or kV according to patient size. Use of iterative reconstruction technique. COMPARISON: None. FINDINGS: The ventricular system and peripheral CSF spaces are unremarkable. Negative for intracranial masses hemorrhages or midline shift. The campbell-white matter junction is unremarkable. The bones and mague rium are intact. The paranasal sinuses and mastoids are unremarkable. IMPRESSION: No evidence of intracranial masses hemorrhages or midline shift. RPTAT:AAJJ Physician Carlee Date Time Electronically viewed and signed by Physician Carlee on 09/03/2016 16:06 PADMA/
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
== END 2016-09-03 18:05 | disposition home or self-care (01) ==
LOC: FTE 14:35
DX: G44.319 Acute post-traumatic headache, not intractable (principal)
CPT/HCPCS: 70450

== ENCOUNTER 2017-02-20 19:42 | Emergency (ER) | payer OTHER ==
[~2017-02-20] VITALS: Ht 162.6 cm; Wt 101.0 kg
[~2017-02-20 19:42] MED LIST changes: -ETOD300C26 PO; +ETOD300C29 PO
[2017-02-20 19:47] VITALS: Ht 162.6 cm; Wt 101.0 kg
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
[2017-02-20 22:49] LABS: BASOPHIL # 0.1 10^3/ul (0.0-0.1); BASOPHILS % 0.6 % (0.0-2.0); EOSINOPHILS # 0.1 10^3/ul (0.0-0.5); EOSINOPHILS % 1.1 % (0.0-7.0); HEMATOCRIT 40.6 % (37.0-47.0); HEMOGLOBIN 14.3 g/dl (12.0-16.0); LYMPHOCYTES # 2.7 10^3/ul (0.8-2.9); LYMPHOCYTES % 33.6 % (15.0-51.0); MEAN CORPUSCULAR HEMOGLOBIN 31.1 pg (29.0-33.0); MEAN CORPUSCULAR HGB CONC 35.2 g/dl (32.0-37.0); MEAN CORPUSCULAR VOLUME 88.3 fl (82.0-101.0); MEAN PLATELET VOLUME 9.5 fl (7.4-10.4); MONOCYTE # 0.4 10^3/ul (0.3-0.9); MONOCYTES % 5.3 % (0.0-11.0); NEUTROPHIL # 4.8 10^3/ul (1.6-7.5); NEUTROPHILS % 59.2 % (39.0-77.0); PLATELET COUNT 297 10^3/UL (140-415); RED CELL DISTRIBUTION WIDTH 12.3 % (11.5-14.5); WHITE BLOOD COUNT 8.2 10^3/ul (4.8-10.8)
[2017-02-20] MEDS ORDERED: morphine 4 MG/ML VIAL IV STA (23:06)
[2017-02-20 23:08] LABS: ANION GAP 16 (8-16); BLOOD UREA NITROGEN 12 mg/dl (7-20); CALCIUM 9.6 mg/dl (8.4-10.2); CARBON DIOXIDE 31 mmol/L (21-31); CHLORIDE 88 mmol/L (97-110); CREATININE 1.04 mg/dl (0.44-1.00); GLUCOSE 99 mg/dl (70-220); POTASSIUM 3.3 mmol/L (3.5-5.1); SODIUM 132 mmol/L (135-144)
[2017-02-20 23:23] LABS: TROPONIN-I < 0.012 ng/ml (0.00-0.12)
[2017-02-21] MEDS ORDERED: SOD CHLORIDE 0.9% 1,000 ML IV ONE (00:30)
[2017-02-21 01:17] LABS: ADD UMIC NO; UR ASCORBIC ACID NEGATIVE (NEGATIVE); UR BILIRUBIN (Dip) NEGATIVE (NEGATIVE); UR BLOOD (Dip) NEGATIVE (NEGATIVE); UR CLARITY CLEAR (CLEAR); UR COLOR STRAW (YELLOW); UR GLUCOSE (Dip) NEGATIVE (NEGATIVE); UR KETONES (Dip) NEGATIVE (NEGATIVE); UR LEUKOCYTE ESTERASE (Dip) NEGATIVE Leu/ul (NEGATIVE); UR NITRITE (Dip) NEGATIVE (NEGATIVE); UR SPECIFIC GRAVITY (Dip) 1.006 (1.003-1.030); UR TOTAL PROTEIN (Dip) NEGATIVE (NEGATIVE); UR UROBILINOGEN (Dip) NEGATIVE (NEGATIVE)
[2017-02-21] MEDS ORDERED: METO10TA96 PO (01:26)
[2017-02-21] MEDS ORDERED: AMOX1TAB10 PO (01:26)
[2017-02-21 01:41] VITALS: BP 116/54; PULSE 74; RESP 16; TEMP 98.6
== END 2017-02-21 01:44 | disposition home or self-care (01) ==
LOC: FTE 19:42
DX: J01.10 Acute frontal sinusitis, unspecified (principal); I10 Essential (primary) hypertension
CPT/HCPCS: 36415; 80048; 81003; 82962; 84484; 85025; 93005; 96374; J2270; J7030; Z7502

== ENCOUNTER 2017-03-12 19:41 | Emergency (ER) | payer OTHER ==
[~2017-03-12] VITALS: Ht 162.6 cm; Wt 102.7 kg
[~2017-03-12 19:41] MED LIST changes: +AMOX1TAB10 PO; +METO10TA96 PO
[2017-03-12 19:43] VITALS: Ht 162.6 cm; Wt 102.7 kg
[2017-03-12] MEDS ORDERED: ONDA4TAB14 PO (20:25)
[2017-03-12] MEDS ORDERED: AMOX1TAB10 PO (20:25)
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
== END 2017-03-12 21:34 | disposition home or self-care (01) ==
LOC: FTE 19:41
DX: J32.9 Chronic sinusitis, unspecified (principal); R11.0 Nausea; I10 Essential (primary) hypertension
CPT/HCPCS: 99284

== ENCOUNTER 2017-04-02 07:27 | Emergency (ER) | payer OTHER ==
[~2017-04-02] VITALS: Wt 90.0 kg
[~2017-04-02 07:27] MED LIST changes: +ONDA4TAB14 PO
[2017-04-02] MEDS ORDERED: ONDANSETRON 4 MG INJ IV STA (07:34)
[2017-04-02] MEDS ORDERED: SOD CHLORIDE 0.9% 1,000 ML IV STA (07:34)
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
[2017-04-02 08:19] LABS: BASOPHILS % 0.4 % (0.0-2.0); EOSINOPHILS # 0.1 10^3/ul (0.0-0.5); EOSINOPHILS % 0.8 % (0.0-7.0); HEMATOCRIT 38.1 % (37.0-47.0); HEMOGLOBIN 13.8 g/dl (12.0-16.0); LYMPHOCYTES # 3.6 10^3/ul (0.8-2.9); MEAN CORPUSCULAR HEMOGLOBIN 31.7 pg (29.0-33.0); MEAN CORPUSCULAR HGB CONC 36.2 g/dl (32.0-37.0); MEAN CORPUSCULAR VOLUME 87.6 fl (82.0-101.0); MEAN PLATELET VOLUME 9.4 fl (7.4-10.4); MONOCYTE # 0.6 10^3/ul (0.3-0.9); MONOCYTES % 5.6 % (0.0-11.0); NEUTROPHIL # 5.7 10^3/ul (1.6-7.5); NEUTROPHILS % 56.6 % (39.0-77.0); PLATELET COUNT 313 10^3/UL (140-415); RED BLOOD COUNT 4.35 10^6/ul (4.20-5.40); RED CELL DISTRIBUTION WIDTH 12.4 % (11.5-14.5); WHITE BLOOD COUNT 10.1 10^3/ul (4.8-10.8)
[2017-04-02 08:27] LABS: ALANINE AMINOTRANSFERASE 34 IU/L (13-69); ALBUMIN 4.5 g/dl (3.3-4.9); ALKALINE PHOSPHATASE 104 IU/L (42-121); ANION GAP 15 (8-16); ASPARTATE AMINO TRANSFERASE 23 IU/L (15-46); BILIRUBIN,INDIRECT 0.2 mg/dl (0-1.1); BILIRUBIN,TOTAL 0.2 mg/dl (0.2-1.3); BLOOD UREA NITROGEN 9 mg/dl (7-20); CALCIUM 9.5 mg/dl (8.4-10.2); CARBON DIOXIDE 25 mmol/L (21-31); CHLORIDE 93 mmol/L (97-110); CREATININE 0.79 mg/dl (0.44-1.00); GLUCOSE 121 mg/dl (70-220); POTASSIUM 4.1 mmol/L (3.5-5.1); SODIUM 129 mmol/L (135-144); TOTAL PROTEIN 7.7 g/dl (6.1-8.1)
[2017-04-02 08:42] LABS: TROPONIN-I < 0.012 ng/ml (0.00-0.12)
[2017-04-02] MEDS ORDERED: MECLIZINE 12.5 MG TAB PO ONE (10:30)
[2017-04-02] MEDS ORDERED: MECL12.574 PO (10:54)
[2017-04-02 11:02] VITALS: BP 154/74; PULSE 79; RESP 18; TEMP 98.1
== END 2017-04-02 11:09 | disposition home or self-care (01) ==
LOC: E/R 07:27
DX: R42 Dizziness and giddiness (principal); R11.2 Nausea with vomiting, unspecified; R55 Syncope and collapse; E87.1 Hypo-osmolality and hyponatremia; I10 Essential (primary) hypertension
CPT/HCPCS: 36415; 80053; 84484; 85025; 93005; 96374; 96375; J2405; J7030; Z7502; Z7610

== ENCOUNTER 2017-11-04 12:51 | Emergency (ER) | END 2017-11-04 15:30 | disposition home or self-care (01) ==

== ENCOUNTER 2018-07-19 17:09 | Observation (INO) | payer OTHER ==
[~2018-07-19] VITALS: Ht 162.6 cm; Wt 98.1 kg
[~2018-07-19 17:09] MED LIST changes: -ALBU8.5H3 INH; +ALBU8.5H8 INH; -CYCL-319 PO; +CYCL10TA7 PO; -ETOD300C29 PO; +IBUP800T48 PO; +MECL12.574 PO; +METO10TA3 PO; -METO10TA96 PO; +OXYC-279 PO; +[UNRECOGNIZED DRUG - CODE] PO
--- NOTE | 2018-07-19 20:26 | ERD ---
ER Documentation Chief Complaint Chief Complaint LEFT SIDED CP X 3 DAYS HPI The patient is a 58-year-old female, presenting to the ER because of left-sided chest pain for the last 2 days, radiating down to the left arm, constant, 11/08. She had similar symptoms previously, denies chest pain with vomiting/radiation/exertion/diaphoresis, dyspnea, abdominal pain, vomiting. She has a lot of stress in her life at this time, denies choking/drinking/using illicit drug. Medical history: Hypertension, bipolar, depression Past surgical history: Hysterectomy, aortic stent due to trauma ROS All systems reviewed and are negative except as per history of present illness. Medications Home Meds Reported Medications Aspirin* (Aspirin* EC) 81 Mg Tablet.dr, 81 MG PO DAILY, TAB 07/19/18 Aripiprazole* (Abilify*) 5 Mg Tab, 5 MG PO DAILY, #30 TAB 07/19/18 Chlorthalidone* (Chlorthalidone*) 25 Mg Tablet, 25 MG PO DAILY, TAB 07/19/18 Simvastatin* (Zocor*) 20 Mg Tablet, 20 MG PO QHS, #30 TAB 07/19/18 Discontinued Scripts Oxycodone HCl/Acetaminophen (Percocet 5-325 mg Tablet) 1 Each Tablet, 1 EACH PO DAILY, #10 TAB Prov:MIGUEL FOY PA-C 11/04/17 Ibuprofen* (Motrin*) 800 Mg Tab, 800 MG PO Q6, #30 TAB Prov:MIGUEL FOY PA-C 11/04/17 Meclizine Hcl* (Antivert*) 12.5 Mg Tab, 12.5 MG PO Q6H PRN for DIZZINESS, #20 TAB Prov:BRENTON HUIZAR MD 04/02/17 Ondansetron (Ondansetron Odt) 4 Mg Tab.rapdis, 4 MG PO Q6H PRN for NAUSEA AND/OR VOMITING, #10 TAB Prov:BRITTANY ROSENBAUM PA-C 03/12/17 Amoxicillin/Potassium Clav (Amox-Clav 875-125 mg Tablet) 875-125 mg Tab, 1 TAB PO BID for 10 Days, #20 TAB Prov:BRITTANY ROSENBAUM PA-C 03/12/17 Metoclopramide Hcl* (Metoclopramide Hcl*) 10 Mg Tablet, 10 MG PO TID for 5 Days, TAB Prov:MATTIE DELGADILLO PA-C 02/21/17 Amoxicillin/Potassium Clav (Amox-Clav 875-125 mg Tablet) 875-125 mg Tab, 1 TAB PO BID for 10 Days, #20 TAB Prov:MATTIE DELGADILLO PA-C 02/21/17 Tramadol HCl (Tramadol HCl) 50 Mg Tablet, 100 MG PO Q6 PRN for PAIN, #20 TAB 0 Refills Prov:CANDELARIO SMITH 05/02/16 Etodolac (Lodine) 300 Mg Capsule, 300 MG PO Q8 PRN for PAIN for 10 Days, #30 CAP 0 Refills Prov:CANDELARIO SMITH 05/02/16 Albuterol Sulfate* (Proair HFA*) 8.5 Gm Hfa.aer.ad, 2 PUFF INH Q4, #1 INHALER Prov:MIGUEL FOY PA-C 10/14/15 Acetaminophen* (Tylenol*) 325 Mg Tablet, 2 TAB PO Q8 PRN for PAIN AND OR ELEVATED TEMP, #20 TAB Prov:MIGUEL FOY PA-C 09/27/15 Ondansetron Hcl* (Zofran*) 4 Mg Tablet, 4 MG PO Q6H for NAUSEA AND/OR VOMITING, #30 TAB Prov:MIGUEL FOY PA-C 09/27/15 Cyclobenzaprine Hcl* (Cyclobenzaprine Hcl*) 10 Mg Tablet, 10 MG PO TID, #15 TAB Prov:ISMAEL BREEN 03/21/15 Ibuprofen* (Motrin*) 600 Mg Tab, 600 MG PO Q6, #30 TAB Prov:ISMAEL BREEN 03/21/15 Hydrocodone Bit-Acetaminophen* (Stevenson*) 5-325 Mg Tab, 1 TAB PO Q6 PRN for PAIN, #20 TAB Prov:ISMAEL BREEN 03/21/15 Prednisone* (Prednisone*) 20 Mg Tab, 20 MG PO BID for 3 Days, TAB Prov:BLUE LUIS 10/17/14 Colloidal Oatmeal* (Oatmeal Bath*) 1 Pkt Packet, 1 PKT TOP QID for 5 Days, PACKET (USE FOR BATH) Prov:JOANA LUISA 10/17/14 Hydrocortisone* Topical (Hydrocortisone* Topical) 1%-28.35 Gm Cream..g., 1 LUCIO LIC TOP Q6 PRN for ITCHING, #1 TUB Prov:CHO,BLUE 10/17/14 Diphenhydramine Hcl* (Benadryl*) 50 Mg Cap, 50 MG PO Q6 PRN for PRURITUS, #30 Prov:CHO,BLUE 10/17/14 Allergies Allergies: Coded Allergies: sulfamethoxazole (Verified Allergy, Intermediate, 07/19/18) trimethoprim (Verified Allergy, Intermediate, 07/19/18) gabapentin (Unverified Allergy, Unknown, 07/19/18) lisinopril (Unverified Allergy, Unknown, 07/19/18) PMhx/Soc History of Surgery: Yes (Aortic stent; hysterectomy) Anesthesia Reaction: No Hx Neurological Disorder: Yes (MILD TBI) Hx Respiratory Disorders: No Hx Cardiac Disorders: Yes (HTN) Hx Psychiatric Problems: Yes (HX OF BIPOLAR; DEPRESSION) Hx Miscellaneous Medical Probl: Yes (anemia, bipolar) Hx Alcohol Use: No Hx Substance Use: No Hx Tobacco Use: No Physical Exam Vitals Vital Signs Date Temp Pulse Resp B/P (MAP) Pulse Ox O2 O2 Flow FiO2 Time Delivery Rate 07/19/18 98.4 89 18 164/83 99 17:11 (110) Physical Exam Const: No acute distress. Head: Atraumatic. Eyes: Normal Conjunctiva. ENT: Normal External Ears, Nose and Mouth. Neck: Full range of motion. No meningismus. Resp: Clear to auscultation bilaterally. Cardio: Regular rate and rhythm. Abd: Soft, non distended, normal bowel sounds, non tender. Skin: No petechiae or rashes. Back: No midline or flank tenderness. Ext: No cyanosis, or edema. Neur: Awake and alert. No focal deficit Psych: Normal Mood and Affect. Result Diagram: 07/19/18210507/19/182105 Results 24 hrs Laboratory Tests Test 07/19/18 21:06 White Blood Count 8.9 10^3/ul Red Blood Count 4.52 10^6/ul Hemoglobin 13.5 g/dl Hematocrit 39.4 % Mean Corpuscular Volume 87.2 fl Mean Corpuscular Hemoglobin 29.9 pg Mean Corpuscular Hemoglobin Concent 34.3 g/dl Red Cell Distribution Width 13.0 % Platelet Count 274 10^3/UL Mean Platelet Volume 10.1 fl Immature Granulocytes % 0.300 % Neutrophils % 62.2 % Lymphocytes % 31.7 % Monocytes % 4.7 % Eosinophils % 0.8 % Basophils % 0.3 % Nucleated Red Blood Cells % 0.0 /100WBC Immature Granulocytes # 0.030 10^3/ul Neutrophils # 5.5 10^3/ul Lymphocytes # 2.8 10^3/ul Monocytes # 0.4 10^3/ul Eosinophils # 0.1 10^3/ul Basophils # 0.0 10^3/ul Nucleated Red Blood Cells # 0.0 10^3/ul Sodium Level 141 mmol/L Potassium Level 3.7 mmol/L Chloride Level 100 mmol/L Carbon Dioxide Level 26 mmol/L Anion Gap 15 Blood Urea Nitrogen 11 mg/dl Creatinine 0.84 mg/dl Est Glomerular Filtrat Rate mL/min > 60 mL/min Glucose Level 96 mg/dl Calcium Level 9.7 mg/dl Troponin I < 0.012 ng/ml Current Medications Medications Dose Sig/Kristel Start Time Status Last (Trade) Ordered Route PRN Stop Time Admin Dose Reason Admin Aspirin 325 mg ONCE ONCE 07/19/18 DC 07/19/18 (Aspirin) PO 22:00 22:11 07/19/18 22:01 1 inch ONCE ONCE 07/19/18 DC 07/19/18 Nitroglycerin TD 22:00 22:12 07/19/18 22:01 (Nitroglyceri n 2% Oint) 5 mg DAILY PO 07/20/18 Aripiprazole 09:00 (Abilify) Aspirin 81 mg DAILY PO 07/20/18 (Halfprin) 09:00 25 mg DAILY PO 07/20/18 Chlorthalidon 09:00 e (Hygroton) 20 mg QHS PO 07/20/18 DC Miscellaneous 21:00 Information 07/20/18 21:00 Hydralazine 10 mg Q4H PRN 07/19/18 HCl IV ELEVATED 22:30 (Apresoline) BLOOD PRESSURE IV Flush 3 ml PER 07/19/18 (NS 3 ml) PROTOCOL IV 22:30 Ondansetron 4 mg Q6H PRN 07/19/18 HCl (Zofran IV 22:30 Inj) NAUSEA/VOMITI NG Aspirin 81 mg DAILY PO 07/20/18 DC (Aspirin) 09:00 07/20/18 09:00 1 tab Q5M PRN 07/19/18 Nitroglycerin SL .CHEST 22:30 PAIN (Nitroglyceri n (Sl Tab) 0.4 Mg) 650 mg Q6H PRN 07/19/18 Acetaminophen PO .PAIN 1-3 22:30 (Tylenol OR TEMP Tab) Morphine 2 mg Q4H PRN 07/19/18 Sulfate IV .PAIN 22:30 (morphine) 7-10 Docusate 100 mg Q12H PRN 07/19/18 Sodium PO 22:30 (Colace) .CONSTIPATION Bisacodyl 5 mg DAILY PRN 07/19/18 (Dulcolax) PO 22:30 .CONSTIPATION 10 mg DAILY@21 07/20/18 Atorvastatin PO 21:00 Calcium (Lipitor) Procedures/[place] [address] Radiology Main Line: [phone] DIAGNOSTIC IMAGING REPORT Patient: DEL MENDOSA : 1960 Age: 58 Sex: F MR #: [id number] DOS: 07/19/182039 Ordering MD: MATTIE MOLINA MD Location: E/R Room/Bed: PROCEDURE: XR Chest. CLINICAL INDICATION: chest pain TECHNIQUE: Single frontal view of the chest was obtained COMPARISON: CR CHEST 08/03/2016 FINDINGS: The heart is normal in size. There is a stent graft with thoracic aorta.. The lungs are clear. There is no pleural effusion or pneumothorax. RPTAT: AA IMPRESSION: No acute disease. .Tawanda Carlton MD, MD Date Time Electronically viewed and signed by .Tawanda Carlton MD, on 07/19/2018 21: 15 .S/ CC: MATTIE MOLINA MD [id number] EKG: Read by emergency physician Rate/Rhythm: Normal Sinus Rhythm 88 beats/min QRS, ST, T-waves: No ST elevation, no T inversion, prolong QT Impression: Abnormal EKG MEDICAL MAKING DECISION: The patient is a 58-year-old female, presenting with a cute chest pain, concerning for acute ACS. She was treated with aspirin 325 mg p.o. and 1 inch of nitroglycerin ointment to the chest wall with good response. The differential diagnoses considered include but are not limited to acute stress, acute anxiety, acute coronary syndrome, acute myocardial infarction, pericarditis, pulmonary embolism, aortic dissection, pneumonia, pleural effusion, pneumothorax, GERD, chest wall pain. Departure Diagnosis: Primary Impression: Chest pain Condition: Stable Comments I discussed the findings with the patient. I discussed the patient with the hospitalist Dr Marcano at 9:55 pm who was made aware of the lab, the treatment, the patient condition. The patient is admitted to [facility] Disclaimer: Inadvertent spelling and grammatical errors are likely due to EHR/dictation software use and do not reflect on the overall quality of patient care. Also, please note that the electronic time recorded on this note does not necessarily reflect the actual time of the patient encounter. MATTIE MOLINA MD Jul 19, 2018 20:26
[2018-07-19] MEDS ORDERED: NITROGLYCERIN 2% 1 GM OINT PKT TD ONE (22:00)
[2018-07-19] MEDS ORDERED: ASPIRIN 325 MG TAB PO ONE (22:00)
[2018-07-19] MEDS ORDERED: SIMV20TA PO (22:05)
[2018-07-19] MEDS ORDERED: CHLO25TA2 PO (22:05)
[2018-07-19] MEDS ORDERED: ASPI-817 PO (22:06)
[2018-07-19] MEDS ORDERED: ARIP5TAB14 PO (22:06)
[2018-07-19] MEDS ORDERED: NACL 0.9% 3 ML SYG IV SCH (22:30)
[2018-07-19] MEDS ORDERED: BISACODYL (EC) 5 MG TAB PO PRN (22:30)
[2018-07-19] MEDS ORDERED: NITROGLYCERIN (SL) 0.4 MG TAB SL PRN (22:30)
[2018-07-19] MEDS ORDERED: ONDANSETRON 4 MG INJ IV PRN (22:30)
[2018-07-19] MEDS ORDERED: morphine 2 MG INJ IV PRN (22:30)
[2018-07-19] MEDS ORDERED: ACETAMINOPHEN 325 MG TAB PO PRN (22:30)
[2018-07-19] MEDS ORDERED: hydrALAzine 20 MG INJ IV PRN (22:30)
[2018-07-19] MEDS ORDERED: DOCUSATE SODIUM 100 MG CAP PO PRN (22:30)
[2018-07-19] MEDS ORDERED: ALPRAZOLAM 0.25 MG TAB PO ONE (23:30)
[2018-07-20] VITALS (10 sets, daily range): BP systolic 109–124; BP diastolic 64–77; PULSE 75–91; RESP 16–20; Ht 162.6 cm; Wt 98.1 kg
--- NOTE | 2018-07-20 01:06 | HP ---
Date/Time of Note Date/Time of Note DATE: 07/20/18 TIME: 01:05 Assessment/Plan VTE Prophylaxis SCD applied (from Nsg): Yes Pharmacological prophylaxis: NA/contraindicated Pharm contraindication: low risk/ambulating Lines/Catheters IV Catheter Type (from Nrsg): Saline Lock Assessment/Plan Hospital Course This is a 58-year female being admitted to the telemetry floor for observation for: #1: Chest pain: Rule out ACS versus anxiety versus costochondritis. Trend cardiac enzymes x3, the first that was negative. Will check an echocardiogram. PRN nitro/morphine for pain. Will check hemoglobin A1c, lipid panel, TSH continue aspirin #2 hypertension: Continue chlorthalidone #3 hyperlipidemia: Continue statin #4 obesity: We will check hemoglobin A 1C, lipid panel, TSH #5 depression: Continue Abilify # 6 DVT GI prophylaxis: SCDs, no GI prophylaxis indicated Further treatment strategy will be implemented as per clinical course Result Diagram: 07/19/18210507/19/182105 Results 24hrs Laboratory Tests Test 07/19/18 21:06 White Blood Count 8.9 Red Blood Count 4.52 Hemoglobin 13.5 Hematocrit 39.4 Mean Corpuscular Volume 87.2 Mean Corpuscular Hemoglobin 29.9 Mean Corpuscular Hemoglobin Concent 34.3 Red Cell Distribution Width 13.0 Platelet Count 274 Mean Platelet Volume 10.1 Immature Granulocytes % 0.300 Neutrophils % 62.2 Lymphocytes % 31.7 Monocytes % 4.7 Eosinophils % 0.8 Basophils % 0.3 Nucleated Red Blood Cells % 0.0 Immature Granulocytes # 0.030 Neutrophils # 5.5 Lymphocytes # 2.8 Monocytes # 0.4 Eosinophils # 0.1 Basophils # 0.0 Nucleated Red Blood Cells # 0.0 Sodium Level 141 Potassium Level 3.7 Chloride Level 100 Carbon Dioxide Level 26 Anion Gap 15 H Blood Urea Nitrogen 11 Creatinine 0.84 Est Glomerular Filtrat Rate mL/min > 60 Glucose Level 96 Calcium Level 9.7 Troponin I < 0.012 HPI/ROS Admit Date/Time Admit Date/Time Jul 19, 2018 at 22:28 Hx of Present Illness Chief complaint: Chest pain times 2 days The patient is a 58-year-old female, presenting to the ER because of left-sided chest pain for the last 2 days, radiating down to the left arm, constant, 7/10. She had similar symptoms previously, denies chest pain with vomiting/radiation/exertion/diaphoresis, dyspnea, abdominal pain, vomiting. She reports that she has been dealing with a lot of stress regarding multiple family members including her brother being sick. She denies any lower extremity swelling. Allergies: Gabapentin, lisinopril, Bactrim Medications: See ANN ROS Const: As per HPI Eyes : No pain discharge or redness or change in visual acuity ENT: No pain, sore throat, congestion, congestion, dysphagia or discharge Respiratory: No shortness of breath, cough, sputum, wheezing, or pleuritic pain Cardiovascular: As per HPI GI : no change in appetite, abdominal pain, nausea, vomiting, diarrhea, constipation, or change in the color his stool Genitourinary: No dysuria, hematuria, flank pain , discharge or CVA tenderness Musculoskeletal: No joint pain, back pain, neck pain, restricted range of motion in neck or joints Skin: No rash, bruising or hives Neuro: No headache, dizziness, syncope, seizure, focal weakness Endocrine: No polyuria, polydipsia, temperature intolerance Psych: As per HPI PMH/Family/Social Past Medical History Hypertension hyperlipidemia, depression Medications Current Medications Aripiprazole (Abilify) 5 mg DAILY PO ; Start 07/20/18 at 09:00 Aspirin (Halfprin) 81 mg DAILY PO ; Start 07/20/18 at 09:00 Chlorthalidone (Hygroton) 25 mg DAILY PO ; Start 07/20/18 at 09:00 Hydralazine HCl (Apresoline) 10 mg Q4H PRN IV ELEVATED BLOOD PRESSURE; Start 07/19/18 at 22:30 IV Flush (NS 3 ml) 3 ml PER PROTOCOL IV ; Start 07/19/18 at 22:30 Ondansetron HCl (Zofran Inj) 4 mg Q6H PRN IV NAUSEA/VOMITING; Start 07/19/18 at 22:30 Nitroglycerin (Nitroglycerin (Sl Tab) 0.4 Mg) 1 tab Q5M PRN SL .CHEST PAIN; Start 07/19/18 at 22:30 Acetaminophen (Tylenol Tab) 650 mg Q6H PRN PO .PAIN 1-3 OR TEMP; Start 07/19/18 at 22:30 Morphine Sulfate (morphine) 2 mg Q4H PRN IV .PAIN 7-10; Start 07/19/18 at 22:30 Docusate Sodium (Colace) 100 mg Q12H PRN PO .CONSTIPATION; Start 07/19/18 at 2 2:30 Bisacodyl (Dulcolax) 5 mg DAILY PRN PO .CONSTIPATION; Start 07/19/18 at 22:30 Atorvastatin Calcium (Lipitor) 10 mg DAILY@21 PO ; Start 07/20/18 at 21:00 Coded Allergies: sulfamethoxazole (Verified Allergy, Intermediate, 07/19/18) trimethoprim (Verified Allergy, Intermediate, 07/19/18) gabapentin (Unverified Allergy, Unknown, 07/19/18) lisinopril (Unverified Allergy, Unknown, 07/19/18) Past Surgical History Hysterectomy, aortic stent due to trauma Family History Significant Family History: no pertinent family hx Social History Alcohol Use: none Smoking Status: Never smoker Drug Use: none Exam/Review of Systems Vital Signs Vitals Vital Signs Date Temp Pulse Resp B/P (MAP) Pulse Ox O2 O2 Flow FiO2 Time Delivery Rate 07/19/18 80 18 117/75 100 Room Air 23:00 (89) 07/19/18 98.4 17:11 Exam Exam General: Patient is a pleasant female currently lying in bed in no acute distress HEENT: Atraumatic, normocephalic. The pupils are equal, round and reactive. Extraocular motor are intact Neck: Supple with full range of motion. No rigidity or meningismus Chest: Left chest wall palpable tenderness to palpation, mild tenderness palpation over the left shoulder Lungs: Clear to auscultation bilaterally no crackles rales or wheezing Heart: Normal S1-S2, Regular rhythm and rate. Abdomen: Obese, soft , nontender, nondistended , bowel sounds are present. No guarding no rebound tenderness , No masses or organomegaly. No costovertebral temporal angle mass Extremities: Normal to inspection, no edema no cyanosis Neurologic: Normal mental status, speech normal, cranial nerves II through XII are intact, motor and sensory are intact, Additional Comments EKG: Rate/Rhythm: Normal Sinus Rhythm 88 beats/min QRS, ST, T-waves: No ST elevation, no T inversion, prolong QT PROCEDURE: XR Chest. CLINICAL INDICATION: chest pain TECHNIQUE: Single frontal view of the chest was obtained COMPARISON: CR CHEST 08/03/2016 FINDINGS: The heart is normal in size. There is a stent graft with thoracic aorta.. The lungs are clear. There is no pleural effusion or pneumothorax. RPTAT: AA IMPRESSION: No acute disease. .Tawanda Carlton MD, MD Date Time Electronically viewed and signed by .Tawanda Carlton MD, MD on 07/19/2018 21:15 .S/ CC: MATTIE MOLINA MD [id number] LYNSEY SHEPHERD Jul 20, 2018 01:06
[2018-07-20] MEDS ORDERED: ASPIRIN (EC) 81 MG TAB PO SCH (09:00)
[2018-07-20] MEDS ORDERED: ASPIRIN 81 MG TAB PO SCH (09:00)
[2018-07-20] MEDS ORDERED: ARIPIPRAZOLE 5 MG TAB PO SCH (09:00)
[2018-07-20] MEDS ORDERED: CHLORTHALIDONE 25 MG TAB PO SCH (09:00)
[2018-07-20] MEDS ORDERED: POTASSIUM CHLORIDE (SR) 20 MEQ TAB PO STA (12:05)
[2018-07-20] MEDS ORDERED: SUMATRIPTAN 6 MG/0.5 ML INJ SC SCH (12:30)
--- NOTE | 2018-07-20 16:31 | PDOCDIS ---
Discharge Instructions CONDITION [id number] Patient Condition: [id number] Stable HOME CARE INSTRUCTIONS: [id number] Diet Instructions: [id number] Low Fat /Cholesterol FOLLOW UP/APPOINTMENTS Follow-up Plan Follow-up with your primary care physician in 2 weeks. OTHER ORDERS: Other Orders: 1. Resume home medications. 2. Take a low-cholesterol, low carbohydrate diet. 3. Resume activities as tolerated. 4. Follow-up with your primary care physician in 2 weeks. 5. Please go to the nearest emergency room if you have any significant chest pain, shortness of breath, persistent fevers, or any other unusual signs/symptoms. SAI RAE NP Jul 20, 2018 16:31
--- NOTE | 2018-07-20 16:34 | DS ---
Date/Time of Note Date/Time of Note DATE: 07/20/18 TIME: 16:32 Discharge Summary Admission/Discharge Info Admit Date/Time Jul 19, 2018 at 22:28 Discharge Date/Time Discharge Diagnosis 1. Atypical chest pain. 2. Essential hypertension. 3. Dyslipidemia. 4. Prediabetes (hemoglobin A1c 5.9). 5. Obesity. BMI 37 kg/m. 6. Migraine headache. 7. History of ascending aortic stent placement S/P traumatic injury. Patient Condition: Stable Procedures CXR IMPRESSION: No acute disease. 2D Echocardiogram Conclusions: Normal left ventricular systolic function. Normal left ventricular cavity size. Normal left ventricular wall thickness. Ejection fraction is visually estimated at 55 %. Tissue Doppler/Mitral Doppler indices are consistent with impaired relaxation (Stage I diastolic dysfunction). Mild mitral leaflet calcification. Mild mitral annular calcification. Trace mitral regurgitation. Normal appearance of the tricuspid valve. Estimated peak PA systolic pressure 17 mmHg. There is trace tricuspid regurgitation. Hx of Present Illness This is a 58-year-old female with past medical history of hypertension, dyslipidemia, obesity, depression, and a remote history of ascending aortic stent placement. The patient came to the emergency room with chief complaint of chest pain that has been going on for 2days. Patient denied any vomiting, radiation, diaphoresis, or dyspnea. The patient had a blood pressure 164/83 in the emergency room. The patient's initial set of troponins were negative. The patient was admitted to inpatient setting for further treatment and evaluation. Hospital Course The patient's chest pain was extensively evaluated. The patient states chest pain was reproducible. The patient's serial troponins x3 was negative. The patient's chest pain is noncardiac in origin and most probably musculoskeletal in origin. The patient underwent a 2D echocardiogram that showed preserved left ventricular ejection fraction. The patient's chronic problems include hypertension. The patient was maintained on chlorthalidone with well-controlled blood sugar blood pressures. The patient has underlying dyslipidemia. The patient was maintained on statins for the same. The patient was also noticed to be prediabetic with a hemoglobin A1c of 5.9. The patient's random blood glucose levels remained stable. The patient also has a history of migraine headaches. The patient had an episode of migraine headache in the hospital which was treated with sumatriptan. The patient is morbidly obese with a BMI of 37 kg/m. The patient was advised on weight reduction. The patient had a stable hospital course. The patient was ruled out for any underlying ACS. Therefore, the patient will be discharged home. Discharge Instructions 1. Resume home medications. 2. Take a low-cholesterol, low carbohydrate diet. 3. Resume activities as tolerated. 4. Follow-up with your primary care physician in 2 weeks. 5. Please go to the nearest emergency room if you have any significant chest pain, shortness of breath, persistent fevers, or any other unusual signs/symptoms. The patient verbalized understanding of her discharge instructions. The patient was seen in collaboration with Dr. De Santiago. Home Meds Reported Medications Aspirin* (Aspirin* EC) 81 Mg Tablet.dr, 81 MG PO DAILY, TAB 07/19/18 Aripiprazole* (Abilify*) 5 Mg Tab, 5 MG PO DAILY, #30 TAB 07/19/18 Chlorthalidone* (Chlorthalidone*) 25 Mg Tablet, 25 MG PO DAILY, TAB 07/19/18 Simvastatin* (Zocor*) 20 Mg Tablet, 20 MG PO QHS, #30 TAB 07/19/18 Discontinued Scripts Oxycodone HCl/Acetaminophen (Percocet 5-325 mg Tablet) 1 Each Tablet, 1 EACH PO DAILY, #10 TAB Prov:MIGUEL FOY PA-C 11/04/17 Ibuprofen* (Motrin*) 800 Mg Tab, 800 MG PO Q6, #30 TAB Prov:MIGUEL FOY PA-C 11/04/17 Meclizine Hcl* (Antivert*) 12.5 Mg Tab, 12.5 MG PO Q6H PRN for DIZZINESS, #20 TAB Prov:BRENTON HUIZAR MD 04/02/17 Ondansetron (Ondansetron Odt) 4 Mg Tab.rapdis, 4 MG PO Q6H PRN for NAUSEA AND/OR VOMITING, #10 TAB Prov:BRITTANY ROSENBAUM PA-C 03/12/17 Amoxicillin/Potassium Clav (Amox-Clav 875-125 mg Tablet) 875-125 mg Tab, 1 TAB PO BID for 10 Days, #20 TAB Prov:BRITTANY ROSENBAUM PA-C 03/12/17 Metoclopramide Hcl* (Metoclopramide Hcl*) 10 Mg Tablet, 10 MG PO TID for 5 Days, TAB Prov:MATTIE DELGADILLO PA-C 02/21/17 Amoxicillin/Potassium Clav (Amox-Clav 875-125 mg Tablet) 875-125 mg Tab, 1 TAB PO BID for 10 Days, #20 TAB Prov:MATTIE DELGADILLO PA-C 02/21/17 Tramadol HCl (Tramadol HCl) 50 Mg Tablet, 100 MG PO Q6 PRN for PAIN, #20 TAB 0 Refills Prov:CANDELARIO SMITH 05/02/16 Etodolac (Lodine) 300 Mg Capsule, 300 MG PO Q8 PRN for PAIN for 10 Days, #30 CAP 0 Refills Prov:SARAHCANDELARIO 05/02/16 Albuterol Sulfate* (Proair HFA*) 8.5 Gm Hfa.aer.ad, 2 PUFF INH Q4, #1 INHALER Prov:MIGUEL FOY PA-C 10/14/15 Acetaminophen* (Tylenol*) 325 Mg Tablet, 2 TAB PO Q8 PRN for PAIN AND OR ELEVATED TEMP, #20 TAB Prov:MIGUEL FOY PA-C 09/27/15 Ondansetron Hcl* (Zofran*) 4 Mg Tablet, 4 MG PO Q6H for NAUSEA AND/OR VOMITING, #30 TAB Prov:MIGUEL FOY PA-C 09/27/15 Cyclobenzaprine Hcl* (Cyclobenzaprine Hcl*) 10 Mg Tablet, 10 MG PO TID, #15 TAB Prov:ISMAEL BREEN 03/21/15 Ibuprofen* (Motrin*) 600 Mg Tab, 600 MG PO Q6, #30 TAB Prov:ISMAEL BREEN 03/21/15 Hydrocodone Bit-Acetaminophen* ([place]*) 5-325 Mg Tab, 1 TAB PO Q6 PRN for PAIN, #20 TAB Prov:ISMAEL BREEN 03/21/15 Prednisone* (Prednisone*) 20 Mg Tab, 20 MG PO BID for 3 Days, TAB Prov:CHOBLUE 10/17/14 Colloidal Oatmeal* (Oatmeal Bath*) 1 Pkt Packet, 1 PKT TOP QID for 5 Days, PACKET (USE FOR BATH) Prov:CHO,BLUE 10/17/14 Hydrocortisone* Topical (Hydrocortisone* Topical) 1%-28.35 Gm Cream..g., 1 APPLIC TOP Q6 PRN for ITCHING, #1 TUB Prov:CHO,BLUE 10/17/14 Diphenhydramine Hcl* (Benadryl*) 50 Mg Cap, 50 MG PO Q6 PRN for PRURITUS, #30 Prov:CHO,BLUE 10/17/14 Follow-up Plan Follow-up with your primary care physician in 2 weeks. Primary Care Provider [facility] Pending Labs Laboratory Tests Test 07/19/18 21:06 07/20/18 03:09 07/20/18 09:43 White Blood Count 8.9 9.3 10^3/ul (4.8-10.8) 10^3/ul (4.8-10.8) Red Blood Count 4.52 4.23 10^6/ul (4.20-5.40) 10^6/ul (4.20-5.40 ) Hemoglobin 13.5 12.5 g/dl (12.0-16.0) g/dl (12.0-16.0) Hematocrit 39.4 % (37.0-47.0) 37.9 % (37.0-47.0) Mean Corpuscular 87.2 89.6 Volume fl (82.0-101.0) fl (82.0-101.0) Mean Corpuscular 29.9 pg (29.0-33.0) 29.6 Hemoglobin pg (29.0-33.0) Mean Corpuscular 34.3 33.0 Hemoglobin Concent g/dl (32.0-37.0) g/dl (32.0-37.0) Red Cell 13.0 % (11.5-14.5) 13.1 % (11.5-14.5) Distribution Width Platelet Count 274 240 10^3/UL (140-415) 10^3/UL (140-415) Mean Platelet 10.1 fl (7.4-10.4) 9.7 fl (7.4-10.4) Volume Immature 0.300 0.300 Granulocytes % % (0.001-0.429) % (0.001-0.429) Neutrophils % 62.2 % (39.0-77.0) 63.6 % (39.0-77.0) Lymphocytes % 31.7 % (15.0-51.0) 29.3 % (15.0-51.0) Monocytes % 4.7 % (0.0-11.0) 5.4 % (0.0-11.0) Eosinophils % 0.8 % (0.0-7.0) 1.0 % (0.0-7.0) Basophils % 0.3 % (0.0-2.0) 0.4 % (0.0-2.0) Nucleated Red Blood 0.0 0.0 Cells % /100WBC (0.0-0.0) /100WBC (0.0-0.0) Immature 0.030 0.030 Granulocytes # 10^3/ul (0.0-0.031) 10^3/ul (0.0-0.031 ) Neutrophils # 5.5 5.9 10^3/ul (1.6-7.5) 10^3/ul (1.6-7.5) Lymphocytes # 2.8 2.7 10^3/ul (0.8-2.9) 10^3/ul (0.8-2.9) Monocytes # 0.4 0.5 10^3/ul (0.3-0.9) 10^3/ul (0.3-0.9) Eosinophils # 0.1 0.1 10^3/ul (0.0-0.5) 10^3/ul (0.0-0.5) Basophils # 0.0 0.0 10^3/ul (0.0-0.1) 10^3/ul (0.0-0.1) Nucleated Red Blood 0.0 0.0 Cells # 10^3/ul (0.0-0.0) 10^3/ul (0.0-0.0) Sodium Level 141 145 mmol/L (135-144) mmol/L (135-144) Potassium Level 3.7 3.2 mmol/L (3.5-5.1) mmol/L (3.5-5.1) Chloride Level 100 mmol/L (97-110) 100 mmol/L (97-110) Carbon Dioxide 26 mmol/L (21-31) 36 mmol/L (21-31) Level Anion Gap 15 (5-13) 9 (5-13) Blood Urea 11 mg/dl (7-20) 11 mg/dl (7-20) Nitrogen Creatinine 0.84 0.91 mg/dl (0.44-1.00) mg/dl (0.44-1.00) Est Glomerular > 60 mL/min (>60) > 60 mL/min (>60) Filtrat Rate mL/min Glucose Level 96 mg/dl (70-220) 138 mg/dl (70-220) Calcium Level 9.7 9.7 mg/dl (8.4-10.2) mg/dl (8.4-10.2) Troponin I < 0.012 < 0.012 < 0.012 ng/ml (0.000-0.120) ng/ml (0.000-0.120 ng/ml (0.000-0.120 ) ) Hemoglobin A1c 5.9 % (0-5.9) Magnesium Level 2.2 mg/dl (1.7-2.5) Total Bilirubin 0.3 mg/dl (0.2-1.3) Direct Bilirubin 0.00 mg/dl (0.00-0.20) Indirect Bilirubin 0.3 mg/dl (0-1.1) Aspartate Amino 23 IU/L (15-46) Transf (AST/SGOT) Alanine 20 IU/L (13-69) Aminotransferase (A LT/SGPT) Alkaline 80 IU/L (42-121) Phosphatase Creatine Kinase 51 IU/L (23-200) 56 IU/L (23-200) Creatine Kinase 1.1 0.8 Index Creatinine Kinase 0.54 0.45 MB (Mass) ng/ml (0.0-2.4) ng/ml (0.0-2.4) Total Protein 7.2 g/dl (6.1-8.1) Albumin 4.1 g/dl (3.3-4.9) Globulin 3.10 g/dl (1.3-3.2) Albumin/Globulin 1.32 Ratio Triglycerides 136 mg/dl (0-149) Level Cholesterol Level 208 mg/dl (100-200) LDL Cholesterol, 127 mg/dl Calculated HDL Cholesterol 54 mg/dl (37-92) Cholesterol/HDL 3.8 RATIO Ratio Thyroid Stimulating 3.650 Hormone (TSH) MIU/L (0.465-4.680 ) B-Type Natriuretic < 11 PG/ML (0-125) Peptide SAI RAE NP Jul 20, 2018 16:34
[2018-07-20] MEDS ORDERED: ATORVASTATIN 10 MG TAB PO SCH (21:00)
[2018-07-20] MEDS ORDERED: NON-FORMULARY/PATIENT OWN MED (Simvastatin* (Zocor*) 20 MG) PO SCH (21:00)
--- NOTE | 2018-07-20 21:35 | RADRPT ---
Echocardiogram Report Patient Name: DEL MENDOSAPatient ID: [id number] : 1960 (58y 4m)Study Date: 07/20/2018 8:22:15 AM Gender: FAccession #: [id number] Tech: Chris Lee [facility] Location: 509-A Ref.Physician: LYNSEY SHEPHERD Height(Cm): BSA: Weight(Kg): Quality: AdequateAccount #: Procedures: Echocardiographic Report: Transthoracic echocardiogram with complete 2D, M-Mode, and doppler examination. Indications: Chest Pain. Measurements: 2D/M Mode Doppler Measurement Value Normal Range Measurement Value Normal Range LVIDd 2D 5.1 [ 3.8 - 5.2 ] cm AV Peak Benjamin 1.5 [ 100.0 - 170.0 ] cm/sec LVIDs 2D 3.8 [ 2.2 - 3.5 ] cm AV Peak PG 9.0 [ 2.0 - 9.0 ] mmHg LVPWd 2D 1.0 [ 0.6 - 0.9 ] cm LVOT Peak Benjamin 1.0 [ 70.0 - 110.0 ] cm/sec IVSd 2D 0.9 [ 0.6 - 0.9 ] cm LVOT Peak PG 4.0 [ 2.0 - 6.0 ] mmHg IVS/LVPW 2D 1.0 ratio MV E Peak Benjamin 1.0 [ 60.0 - 130.0 ] cm/sec AoR Diam 2D 2.4 [ 2.3 - 3.1 ] cm MV A Peak Benjamin 1.2 [ 100.0 - 120.0 ] cm/sec LA/Ao 2D 2 ratio MV E/A 0.8 [ 0.8 - 1.5 ] ratio LA Dimen 2D 3.8 [ 2.7 - 3.8 ] cm MV Decel Time 153 [ 104 - 258 ] msec Lat E` Benjamin 0.1 [ 10.0 - 15.0 ] cm/sec MV E/A 0.8 [ 0.8 - 1.5 ] ratio TR Peak Benjamin 1.9 [ 100.0 - 280.0 ] cm/sec TR Peak PG 14.0 mmHg RVSP 17.0 [ 10.0 - 36.0 ] mmHg Findings: Left Ventricle: Normal left ventricular systolic function. Normal left ventricular cavity size. Normal left ventricular wall thickness. Ejection fraction is visually estimated at 55 %. Tissue Doppler/Mitral Doppler indices are consistent with impaired relaxation (Stage I diastolic dysfunction). Right Ventricle: Normal right ventricular size. Normal right ventricular systolic function. Left Atrium: The left atrium is normal in size. Right Atrium: The right atrium is normal in size. Mitral Valve: Mild mitral leaflet calcification. Mild mitral annular calcification. Trace mitral regurgitation. Aortic Valve: No significant aortic stenosis or insufficiency. Aortic cusps appear mildly calcified. Tricuspid Valve: Normal appearance of the tricuspid valve. Estimated peak PA systolic pressure 17 mmHg. There is trace tricuspid regurgitation. Pericardium: Normal pericardium with no significant pericardial effusion. Aorta: Normal aortic root. IVC: Normal size and normal respiratory collapse consistent with normal right atrial pressure. Conclusions: Normal left ventricular systolic function. Normal left ventricular cavity size. Normal left ventricular wall thickness. Ejection fraction is visually estimated at 55 %. Tissue Doppler/Mitral Doppler indices are consistent with impaired relaxation (Stage I diastolic dysfunction). Mild mitral leaflet calcification. Mild mitral annular calcification. Trace mitral regurgitation. Normal appearance of the tricuspid valve. Estimated peak PA systolic pressure 17 mmHg. There is trace tricuspid regurgitation. Electronically Signed By: [place] 2018-07-20 21:34:59 PDT
== END 2018-07-20 18:07 | disposition home or self-care (01) ==
LOC: E/R 17:09 → TEL 22:28
PROVIDERS: ADMIT Family Medicine; ATTEND Family Medicine
DX: R07.89 Other chest pain (principal); I10 Essential (primary) hypertension; E78.5 Hyperlipidemia, unspecified; R73.03 Prediabetes; F32.9 Major depressive disorder, single episode, unspecified; E66.9 Obesity, unspecified; Z68.37 Body mass index [BMI] 37.0-37.9, adult; G43.909 Migraine, unspecified, not intractable, without status migrainosus; Z79.82 Long term (current) use of aspirin
CPT/HCPCS: 36415; 71045; 80048; 80053; 80061; 82550; 82553; 83036; 83735; 83880; 84443; 84484; 85025; 93005; 93306; J3030; Z7500; Z7502; Z7610; G0378

== ENCOUNTER 2018-10-10 14:07 | Emergency (ER) | payer OTHER ==
[~2018-10-10] VITALS: Ht 165.1 cm; Wt 98.0 kg
[~2018-10-10 14:07] MED LIST changes: -ACET325T33 PO; -ALBU8.5H8 INH; -AMOX1TAB10 PO; +ARIP5TAB14 PO; +ASPI-817 PO; -BEN50 PO; +CHLO25TA2 PO; -COLL1PAC12 TOP; -CYCL10TA7 PO; -HC1C30 TOP; -HYDR-3498 PO; -IBUP-1542 PO; -IBUP800T48 PO; -MECL12.574 PO; -METO10TA3 PO; -ONDA4TAB14 PO; -ONDA4TAB8 PO; -OXYC-279 PO; -PRED20TA PO; +SIMV20TA PO; -TRAM50TA2 PO; -[UNRECOGNIZED DRUG - CODE] PO
[2018-10-10 14:15] VITALS: BP 147/79; PULSE 79; RESP 18; Ht 165.1 cm; Wt 98.0 kg
[2018-10-10] MEDS ORDERED: HYDR-4011 PO (14:33)
[2018-10-10] MEDS ORDERED: NAPR-985 PO (14:33)
--- NOTE | 2018-10-10 14:53 | ERD ---
ER Documentation Chief Complaint Chief Complaint RIGHT EAR PAIN HPI 58-year-old female presenting with pain to her right ear. Patient states is taking antibiotics and only has 2 days left for a ear infection. Patient also has a partially replaced ear canal on the right upper space and she is unsure if her ear is infected or if they were canal area is affecting her ear and causing pain. Denies any fevers. Denies any runny nose or cough. Denies headaches. Has not taken medication aside from her antibiotics. ROS All systems reviewed and are negative except as per history of present illness. Medications Home Meds Active Scripts Naproxen* (Naprosyn*) 500 Mg Tablet, 500 MG PO BID PRN for PAIN AND/OR INFLAMMATION, #30 TAB Prov:MIGUEL FOY PA-C 10/10/18 Hydrocodone/Acetaminophen ([place] 5-325 Tablet) 1 Each Tablet, 1 TAB PO Q6H PRN for PAIN, #7 TAB Prov:MIGUEL FOY PA-C 10/10/18 Reported Medications Aspirin* (Aspirin* EC) 81 Mg Tablet.dr, 81 MG PO DAILY, TAB 07/19/18 Aripiprazole* (Abilify*) 5 Mg Tab, 5 MG PO DAILY, #30 TAB 07/19/18 Chlorthalidone* (Chlorthalidone*) 25 Mg Tablet, 25 MG PO DAILY, TAB 07/19/18 Simvastatin* (Zocor*) 20 Mg Tablet, 20 MG PO QHS, #30 TAB 07/19/18 Allergies Allergies: Coded Allergies: sulfamethoxazole (Verified Allergy, Intermediate, 10/10/18) trimethoprim (Verified Allergy, Intermediate, 10/10/18) gabapentin (Unverified Allergy, Unknown, 10/10/18) lisinopril (Unverified Allergy, Unknown, 10/10/18) PMhx/Soc History of Surgery: Yes Anesthesia Reaction: No Hx Neurological Disorder: No Hx Respiratory Disorders: No Hx Psychiatric Problems: Yes (HX OF BIPOLAR; DEPRESSION) Hx Miscellaneous Medical Probl: Yes (anemia, bipolar) Hx Alcohol Use: No Hx Substance Use: No Hx Tobacco Use: No Smoking Status: Never smoker FmHx Family History: No diabetes, No coronary disease, No other Physical Exam Vitals Vital Signs Date Temp Pulse Resp B/P (MAP) Pulse Ox O2 O2 Flow FiO2 Time Delivery Rate 10/10/18 97.6 79 18 147/79 99 14:15 (101) Physical Exam GENERAL: The patient is well-appearing, well-nourished, in no acute distress HEENT: Atraumatic. Conjunctivae are pink. Pupils equal, round, and reactive to light. There is no scleral icterus. Tympanic membranes clear bilaterally. Oropharynx clear. Poor dentition noted throughout NECK: C-spine is soft and supple. There is no meningismus. There is no cervical lymphadenopathy. CHEST: Clear to auscultation bilaterally. There are no rales, wheezes or rhonchi. HEART: Regular rate and rhythm. No murmurs, clicks, rubs or gallops. Procedures/MDM MDM: 58-year-old female presenting with ear pain. I have low suspicion for ear infection as patient's ear exam is within normal limits. I believe patient likely has pain secondary to her tooth root canal causing her radiating pain to the ear. I do not feel further antibiotics are indicated and patient is recommended to follow-up with dentist. Patient is discharged with pain med ication. Patient is told symptoms change or worsen to return immediately to the ER. All questions answered at discharge Departure Diagnosis: Primary Impression: Pain, dental Condition: Stable Patient Instructions: Dental Pain Referrals: [facility] ([facility] walk in clinic) Additional Instructions: FOLLOW UP WITH YOUR PRIMARY CARE PHYSICIAN TOMORROW.Return to this facility if you are not improving as expected. MIGUEL FOY PA-C Oct 10, 2018 14:53
== END 2018-10-10 14:49 | disposition home or self-care (01) ==
LOC: FTE 14:07
DX: H92.01 Otalgia, right ear (principal); K08.89 Other specified disorders of teeth and supporting structures; I10 Essential (primary) hypertension; Z79.82 Long term (current) use of aspirin
CPT/HCPCS: 99283

== ENCOUNTER 2018-10-14 07:19 | Emergency (ER) | payer OTHER ==
[~2018-10-14] VITALS: Ht 162.6 cm; Wt 100.4 kg
[~2018-10-14 07:19] MED LIST changes: +HYDR-4011 PO; +NAPR-985 PO
[2018-10-14 07:22] VITALS: BP 118/75; PULSE 83; RESP 18; Ht 162.6 cm; Wt 100.4 kg
--- NOTE | 2018-10-14 08:30 | ERD ---
ER Documentation Chief Complaint Chief Complaint rt ear pain / dental pain HPI 58-year-old female presents with complaint of right-sided ear pain x2 days. Patient states to have recently recovered from ear infection, notes to have taken to leftover amoxicillin yesterday which helped to alleviate some of the pain but not completely. Patient notes to have undergone a root canal and is currently taking [place] for pain as prescribed by her dentist. Patient is scheduled to follow-up with her dentist for completion of procedure on October 24 however presents today as states pain is preventing her from sleeping. Denies hearing loss, dizziness, headache, fever or chills. ROS All systems reviewed and are negative except as per history of present illness. Medications Home Meds Active Scripts Amoxicillin/Potassium Clav (Amox-Clav 875-125 mg Tablet) 875-125 mg Tab, 1 TAB PO BID for 10 Days, #20 TAB Prov:PASQUALE SANDOVAL PA-C 10/14/18 Naproxen* (Naprosyn*) 500 Mg Tablet, 500 MG PO BID PRN for PAIN AND/OR IN FLAMMATION, #30 TAB Prov:MIGUEL FOY PA-C 10/10/18 Hydrocodone/Acetaminophen ([place] 5-325 Tablet) 1 Each Tablet, 1 TAB PO Q6H PRN for PAIN, #7 TAB Prov:MIGUEL FOY PA-C 10/10/18 Reported Medications Aspirin* (Aspirin* EC) 81 Mg Tablet.dr, 81 MG PO DAILY, TAB 07/19/18 Aripiprazole* (Abilify*) 5 Mg Tab, 5 MG PO DAILY, #30 TAB 07/19/18 Chlorthalidone* (Chlorthalidone*) 25 Mg Tablet, 25 MG PO DAILY, TAB 07/19/18 Simvastatin* (Zocor*) 20 Mg Tablet, 20 MG PO QHS, #30 TAB 07/19/18 Allergies Allergies: Coded Allergies: sulfamethoxazole (Verified Allergy, Intermediate, 10/10/18) trimethoprim (Verified Allergy, Intermediate, 10/10/18) gabapentin (Unverified Allergy, Unknown, 10/10/18) lisinopril (Unverified Allergy, Unknown, 10/10/18) PMhx/Soc History of Surgery: Yes (stent placement) Anesthesia Reaction: No Hx Neurological Disorder: No Hx Respiratory Disorders: No Hx Psychiatric Problems: Yes (HX OF BIPOLAR; DEPRESSION) Hx Miscellaneous Medical Probl: Yes (anemia) Hx Alcohol Use: No Hx Substance Use: No Hx Tobacco Use: No Smoking Status: Never smoker FmHx Family History: coronary disease; No diabetes, No other Physical Exam Vitals Vital Signs Date Temp Pulse Resp B/P (MAP) Pulse Ox O2 O2 Flow FiO2 Time Delivery Rate 10/14/18 98.3 83 18 118/75 98 07:22 (89) Physical Exam Const: No acute distress Head: Atraumatic Eyes: Normal Conjunctiva ENT: Normal External Ears, Nose and Mouth. Extremely poor dentition with molars #1 and 2 missing, however, no visible abscess or gingival edema.. right TM erythematous and bulging. No edema or erythema of the external auditory canal, no discharge, no foreign body, no cerumen impaction. Neck: Full range of motion. No meningismus. Resp: Clear to auscultation bilaterally Cardio: Regular rate and rhythm, no murmurs Skin: No petechiae or rashes Neur: Awake and alert Psych: Normal Mood and Affect Procedures/MDM MDM: Patients symptoms and physical exam findings are consistent with acute otitis media. The right tympanic membrane was erythematous and dull to light reflex on exam. No ear canal swelling or discharge, making otitis externa unlikely. Patient denies any ear discharge and loss of hearing. Denies history of diabetes mellitus. I have low suspicion for malignant otitis externa, mastoiditis, foreign body in ear canal, and TM perforation. I have prescribed the patient Augmentin twice daily x10 days, as well as counseled regarding use of Tylenol/Motrin for pain control. Advised to follow-up with dentist as previously scheduled. Patient is stable for discharge at this time, advised to follow up with PCP in 1-2 days. Counseled regarding ED return precautions, advised to return if symptoms persist or worsen despite use of medication. Patient expressed verbal understanding and agreement to treatment plan. All questions addressed and answered. Departure Diagnosis: Primary Impression: Otitis media Otitis media type: unspecified Laterality: right Qualified Codes: H66.91 - Otitis media, unspecified, right ear Condition: Good PASQUALE SANDOVAL PA-C Oct 14, 2018 08:30
[2018-10-14] MEDS ORDERED: AMOX1TAB10 PO (08:31)
== END 2018-10-14 08:42 | disposition home or self-care (01) ==
LOC: FTE 07:19
DX: H66.91 Otitis media, unspecified, right ear (principal); Z79.82 Long term (current) use of aspirin
CPT/HCPCS: 99283

== ENCOUNTER 2018-10-29 08:55 | Emergency (ER) | payer OTHER ==
[~2018-10-29] VITALS: Ht 162.6 cm; Wt 79.9 kg
[~2018-10-29 08:55] MED LIST changes: +AMOX1TAB10 PO
[2018-10-29 08:57] VITALS: Ht 162.6 cm; Wt 79.9 kg
[2018-10-29] MEDS ORDERED: KETOROLAC 30 MG INJ IV STA (09:27)
[2018-10-29] MEDS ORDERED: SOD CHLORIDE 0.9% 500 ML IV STA (09:34)
--- NOTE | 2018-10-29 09:57 | ERD ---
ER Documentation Chief Complaint Chief Complaint calderon x 1 mos HPI 58-year-old female presents with headache for the past 2 months. Patient states that the headache is intermittent and on the right side of her head. Pain described as throbbing. Patient has a history of migraines. States that she used to get migraines up until 5 years ago. The migraines then were of the same nature in quality. This headache is not any worse or different nature than the migraines that she used to get. States she has had numerous CTs of her head and they have all been negative. She thinks that because she had an ear infection a month ago that she might have infection in her brain. Denies sudden onset, worse headache of life, fever, neck stiffness, rash, headache getting worse with change in position, headache initiated by exertion, CALDERON worse in the morning, CALDERON waking up patient at night, new neurological deficits, numbness, weakness, vision problems, tenderness to palpation over temporal area, history of trauma, or possibility of CO2 poisoning. Denies past medical history. Denies allergies. Denies surgeries. Denies alcohol, tobacco, drug use. Up to date on vaccines. ROS All systems reviewed and are negative except as per history of present illness. Medications Home Meds Active Scripts Ibuprofen* (Motrin*) 600 Mg Tab, 600 MG PO Q6, #30 TAB Prov:SABA LEMUS 10/29/18 Sfnvpiavny-Hsjxooaekhwcb-Nahootyl* (Fioricet*) 50-300-40 Mg Capsule, 1-2 CAP PO Q4H PRN for HEADACHE, #30 CAP Prov:SABA LEMUS 10/29/18 Amoxicillin/Potassium Clav (Amox-Clav 875-125 mg Tablet) 875-125 mg Tab, 1 TAB PO BID for 10 Days, #20 TAB Prov:PASQUALE SANDOVAL PA-C 10/14/18 Naproxen* (Naprosyn*) 500 Mg Tablet, 500 MG PO BID PRN for PAIN AND/OR INFLAMMATION, #30 TAB Prov:MIGUEL FOY PA-C 10/10/18 Hydrocodone/Acetaminophen ([place] 5-325 Tablet) 1 Each Tablet, 1 TAB PO Q6H PRN for PAIN, #7 TAB Prov:MIGUEL FOY PA-C 10/10/18 Reported Medications Aspirin* (Aspirin* EC) 81 Mg Tablet.dr 81 MG PO DAILY, TAB 07/19/18 Aripiprazole* (Abilify*) 5 Mg Tab, 5 MG PO DAILY, #30 TAB 07/19/18 Chlorthalidone* (Chlorthalidone*) 25 Mg Tablet, 25 MG PO DAILY, TAB 07/19/18 Simvastatin* (Zocor*) 20 Mg Tablet, 20 MG PO QHS, #30 TAB 07/19/18 Allergies Allergies: Coded Allergies: sulfamethoxazole (Verified Allergy, Intermediate, 10/10/18) trimethoprim (Verified Allergy, Intermediate, 10/10/18) gabapentin (Unverified Allergy, Unknown, 10/10/18) lisinopril (Unverified Allergy, Unknown, 10/10/18) PMhx/Soc History of Surgery: Yes (stent placement) Anesthesia Reaction: No Hx Neurological Disorder: No Hx Respiratory Disorders: No Hx Psychiatric Problems: Yes (HX OF BIPOLAR; DEPRESSION) Hx Miscellaneous Medical Probl: Yes (anemia) Hx Alcohol Use: No Hx Substance Use: No Hx Tobacco Use: No Smoking Status: Never smoker FmHx Family History: No diabetes, No coronary disease, No other Physical Exam Vitals Vital Signs Date Temp Pulse Resp B/P (MAP) Pulse Ox O2 O2 Flow FiO2 Time Delivery Rate 10/29/18 76 18 121/79 98 Room Air 10:40 (93) 10/29/18 98.1 88 18 161/93 99 08:57 (115) Physical Exam Const: No acute distress Head: Atraumatic Eyes: Normal Conjunctiva. PERRLA. ENT: Normal External Ears, Nose and Mouth. Neck: Full range of motion. No meningismus. Resp: Clear to auscultation bilaterally Cardio: Regular rate and rhythm, no murmurs Abd: Soft, non tender, non distended. Normal bowel sounds Skin: No petechiae or rashes Back: No midline or flank tenderness Ext: No cyanosis, or edema Neur: Awake and alert Psych: Normal Mood and Affect Neuro: M/S: Alert and oriented Face: EOMI, face and pharynx with normal sensation and function Motor: Normal strength throughout Sensation: Normal sensation throughout Speech: Normal Cerebel: Normal coordination Normal gait Normal finger to nose DTR: 2+ and symmetric upper/lower extremities Results 24 hrs Current Medications Medications Dose Sig/Kristel Start Time Status Last (Trade) Ordered Route PRN Stop Time Admin Dose Reason Admin Ketorolac 30 mg ONCE STAT 10/29/18 DC 10/29/18 Tromethamine IV 09:27 09:42 (Toradol) 10/29/18 09:28 Sodium 500 ml @ Q1H STAT 10/29/18 DC 10/29/18 Chloride 500 mls/hr IV 09:34 09:42 10/29/18 10:33 Procedures/MDM MDM: Patient's presentation consistent with migraines. She has a history of migraines and these of the same quality with same intensity. I have low suspicion for intracranial hemorrhage, elevated intracranial pressure, intracranial mass, aneurysm, meningitis, malignant hypertension, giant cell arteritis, carotid dissection, intracranial abscess, cerebral venous thrombosis, CO2 poisoning, or other emergent causes of headache based on patients history and exam. Patient discharged with strict ER precautions. Patient advised to follow up with PMD. All questions answered at discharge. At this time, patient is stable for discharge and outpatient management. I have instructed the patient to follow-up with his/her primary care physician in 1-2 days. I have discussed with the patient the possibility of needing to see a specialist for further workup and imaging studies if symptoms persist. I have instructed the patient to promptly return to the ER for any new or worsening symptoms including but not limited to increased pain, fever, nausea, vomiting, weakness or LOC. The patient and/or family expressed understanding of and agreement with this plan. All questions were answered. Home care instructions were provided. DISCLAIMER: Inadvertent spelling and grammatical errors are likely due to EHR/dictation software use and do not reflect on the overall quality of patient care. Also, please note that the electronic time recorded on this note does not necessarily reflect the actual time of the patient encounter. Departure Diagnosis: Primary Impression: Headache Headache type: unspecified Headache chronicity pattern: episodic headache Intractability: not intractable Qualified Codes: R51 - Headache Condition: Stable SABA LEMUS Oct 29, 2018 09:57
[2018-10-29] MEDS ORDERED: BUTA1CAP38 PO (10:22)
[2018-10-29] MEDS ORDERED: IBUP-1542 PO (10:22)
[2018-10-29 10:40] VITALS: BP 121/79; PULSE 76; RESP 18
== END 2018-10-29 10:42 | disposition home or self-care (01) ==
LOC: FTE 08:55
DX: R51 Headache (principal); I10 Essential (primary) hypertension; Z79.82 Long term (current) use of aspirin; Z98.61 Coronary angioplasty status
CPT/HCPCS: 96361; 96374; J1885; J7040; Z7502